=== PATIENT | male | born 1980 | race Caucasian/White ===

== ENCOUNTER 2018-02-14 09:25 | Observation (INO) | payer MEDICAID, SELFPAY ==
[2018-02-14 09:25] VITALS: BP 89/47; PULSE 52; RESP 24; TEMP 36.2; O2SAT 99; BMI 23.0
--- NOTE | 2018-02-14 09:42 | CT_ITS ---
STUDY: CT ABDOMEN AND PELVIS WITHOUT CONTRAST REASON FOR EXAM: Male, 37 years old. Nausea and vomiting since 0 5:30 AM today. Abdominal spasms. RADIATION DOSAGE (If Supplied By Facility): CTDIvol = ( 6.34 ) mGy, DLP = ( 316.72 ) mGycm TECHNIQUE: Transaxial images were obtained from the dome of the diaphragm to the symphysis pubis without oral contrast, and without intravenous contrast. Sagittal and coronal images were reconstructed. Individualized dose optimization techniques were used for this CT. COMPARISON: None available. FINDINGS: CT abdomen and pelvis mildly limited without IV contrast. The visualized lung bases appear clear. The visualized lower heart appear within normal limits. Normal liver. Normal gallbladder and extrahepatic biliary system. Normal spleen. Normal pancreas. Normal bilateral adrenal glands. Normal right kidney. Normal left kidney. No hydronephrosis or hydroureter identified. No high attenuation urolithiasis identified. Visualized stomach and visualized distal esophagus show no focal large gross bulky lesion. Normal small intestine. However, at the hepatic flexure and through the proximal to distal transverse colon is hazy effaced pericolonic fat planes and transverse colon wall circumferential low attenuation suggesting edematous changes without dilatation concerning for inflammatory bowel changes such as ulcerative colitis or Crohn's disease. The appendix is visualized and appears normal caliber without thickening noted. Normal abdominal aorta. Normal inferior vena cava. Normal retroperitoneum. Normal urinary bladder. Prostate is approximate in 3.2 x 5.1 cm, upper limits of normal without peripheral effacement point seen. Normal abdominal wall. Mild intraosseous proptosis lower thoracic spine noted. Fairly severe disc space narrowing and endplate sclerosis noted L5-S1. CT/Abdomen/Pelvis without Cont IMPRESSION: Inflammatory changes of the entire transverse colon, differential considerations include ulcerative colitis and Crohn's disease. No transverse colon dilatation or obstruction identified. Clinical correlation recommended. Stomach shows no large gross focal bulky lesion but evaluation is limited without IV contrast. Borderline prostamegaly. Clinical correlation recommended. Fairly severe degenerative L5-S1. Limitations above. Electronically Signed: Laz Vitor, at 10:58 EDT Tel , Service support ,
--- NOTE | 2018-02-14 09:42 | ED.VISSUMM ---
- ER Visit Summary Date of Service: 02/14/18 Chief Complaint: [] Abdominal pain vomiting and diarrhea 5 AM this morning history of same for 5 years intermittently History of Present Illness: The patient is a 37 M [] at 5 AM this morning and having vomiting and diarrhea and crampy lower abdominal pain he said the same syndrome for the last 5 years where he will undergo paroxysms of the above for no specific reason. He has been evaluated with colonoscopies CAT scans and ultrasounds etc. the are unremarkable it is unclear why he has these symptoms. He did not eat or do anything that could have made him ill reports everything was fine last night and this is his typical exacerbation, he does have depression he takes Prozac and that has been stable Physical Examination: [] Is complaining of crampy abdominal pain he has vomited some stomach content his vitals are within normal range his blood pressure is 130/80 the reports occasionally has a low blood pressure with blood pressures been fine and that is an accurate blood pressure his HEENT exam is unremarkable neck is supple lungs are clear heart tones are normal abdomen soft there is a generalized crampy sensation he complains of but there is no rebound guarding organomegaly the abdomen soft, complaints of the cramps no focal areas of tenderness, his extremities are unremarkable he is awake alert moving all 4 no distress except for the cramps Test Results: [] Emergency Department Course and Treatment: [] His white count is 14,000, his abdominal CT per radiology shows inflammation of the entire transverse colon he was started on IV antibiotics IV fluids IV pain meds he is feeling slightly better but not well enough for discharge Dates again he has had this problem for 5 years or more he seen multiple physicians in the prior workups have been unremarkable given all of the above we have asked the hospitalist to see him for further management and admission Treatment Plan: [] Disposition: [] Admit stable pending hospitalist evaluation Impression: [] abdominal pain/colitis involving the transverse colon leukocytosis This note was generated with [employer] dictation software. It may contain incorrect words, spelling, and punctuation that were not noted in review of the chart prior to signing ED Disposition - Plan for ED Patient: Chief Complaint: Nausea/Vomiting Referrals: Kervin Zuniga DO [Primary Care Provider] -
[2018-02-14 09:53] LABS: Absolute Lymphocyte Count 1.27 X10^3/ul (0.83-4.51); Absolute Neutrophil Count 11.5 X10^3/uL (2.0-7.7); Basophil# 0.03 X10^3/uL; Basophil% 0.2 % (0-1); Eosinophil# 0.02 X10^3/uL; Eosinophils% 0.1 % (0-5); Hematocrit 43.9 % (40-54); Hemoglobin 15.9 g/dl (13.0-16.5); Lymphocyte # 1.27 X10^3/ul (4.0); Lymphocyte % 9.4 % (19-41); Mean Corp Hgb Conc 36.2 g/gl (32-36); Mean Corpuscular Hgb 30.1 pg (27.0-32.0); Mean Corpuscular Volume 83.1 fL (80-94); Mean Platelet Vol. 10.1 fl (6.2-12.0); Monocyte# 0.67 X10^3/uL; Neutrophil # 11.47 X10^3/uL (2.7-7.7); Neutrophil % 85.2 % (47-70); POSITIVE COUNT NO; POSITIVE DIFFERENTIAL NO; POSITIVE MORPHOLOGY NO; Platelet Count 239 K/mm3 (150-450); RBC Distribution Width CV 12.3 % (11.6-14.6); RBC Distribution Width SD 37.3 fl (35.1-43.9); Red Blood Count 5.28 M/mm3 (4.6-6.2); White Blood Count 13.5 K/mm3 (4.4-11.0)
[2018-02-14] MEDS: Ondansetron 4 MG/2 ML Vial IV (09:53)
[2018-02-14] MEDS: 0.9% Normal Saline 1,000 ML 1000 ML IV (09:53)
[2018-02-14] MEDS: Morphine 4 MG/ML Syringe IV ×2 (09:53→11:31)
[2018-02-14 09:56] VITALS: BP 135/100; PULSE 61; RESP 25; O2SAT 98
[2018-02-14 10:09] LABS: AST(SGOT) 17 U/L (15-37); Alanine Aminotransfer ALT/SGPT 25 U/L (16-61); Albumin, Serum 4.3 g/dL (3.2-5.0); Alkaline Phosphatase 66 U/L (45-117); Anion Gap 10 (5-15); BUN 22 mg/dL (7-18); BUN/Creat Ratio 22.3 RATIO (10-20); Bilirubin, Direct 0.16 mg/dL (0.00-0.30); Calcium,Total 9.3 mg/dL (8.5-10.1); Chloride 104 mmol/L (98-107); Creatinine, Serum 0.98 mg/dL (0.70-1.30); EST Glomerular Filtration Rate 91 mL/min (>60); Est Glom Filt Rate - Afr Amer 110 mL/min (>60); Estimated Creatinine Clearance 109.34 ml/min; Glucose 181 mg/dL (74-106); Lipase 476 U/L (73-393); Protein, Total 8.3 g/dL (6.4-8.2); Sodium Level 138 mmol/L (136-145)
[2018-02-14 11:33] VITALS: BP 110/92; PULSE 54; RESP 15; O2SAT 97
[2018-02-14 11:45] LABS: Squamous Epithelial Cells - UA 0 SEEN /hpf (0-5)
[2018-02-14 11:48] LABS: Color, Urine Yellow (Yellow); Glucose, Dipstick 50 mg/dl (Normal); Leukocyte Esterase-Dipstick Negative /ul (Negative); Nitrite-Dipstick Negative (Negative); Occult Blood-Urine Negative /ul (Negative); Protein-Dipstick 15 mg/dl (Negative); Urine Bilirubin Dipstick Negative (Negative); Urine Clarity Clear (Clear); Urine Urobilinogen Normal (Normal)
[2018-02-14 11:49] LABS: Ketone-Dipstick 150 mg/dl (Negative)
[2018-02-14 11:54] LABS: Amorphous Sediment 2+; Bacteria RARE /hpf (None Seen); Mucous, Urine RARE /hpf (<or=2+); Red Blood Cells-Urine 0-5 SEEN /hpf (0-5); White Blood Cells 0-5 SEEN /hpf (0-5)
[2018-02-14 12:57] VITALS: BP 104/67; PULSE 82; RESP 16; O2SAT 100
[2018-02-14 13:56] VITALS: BMI 23.1
[2018-02-14 13:57] VITALS: BP 104/64; PULSE 56; RESP 18; TEMP 36.7; O2SAT 96
--- NOTE | 2018-02-14 15:11 | PCM.HP.STD ---
Problem List (1) Irregular bowel habits Status: Chronic (2) Transverse colitis Status: Acute (3) Acute on chronic abdominal pain Status: Chronic History of Present Illness Date of Admission: 02/14/18 Chief Complaint: Abdominal pain for 2 days The patient is a 37 year old M with history of intermittent abdominal pain for 7 years, once every month came to ER with sudden onset of abdominal pain last night. Patient had mid abdominal pain spread over like a band along with nausea and vomiting. Patient further said that he starts with large liquid bowel movement and then abdominal pain associated with nausea and vomiting status for about 2 days and then goes away. Patient never had GI workup including EGD or colonoscopy. Patient denies episodes of GI bleed including hematemesis/hematochezia or melena. In ED, CT abdomen shows transverse colitis with wall thickening and edema of the entire colon. No transverse colon dilatation or obstruction noted. In basic labs done in ER, noted to have mild leukocytosis. Glucose 181. UA is positive of protein, glucose and ketones [] Past Medical History Past Medical History (Chronic Problems): Chronic Problems Irregular bowel habits (Chronic) Acute on chronic abdominal pain (Chronic) Allergies No Known Allergies Allergy (Verified 02/14/18 09:27) Home Medications: Ambulatory Orders Medication Instructions Recorded Fluoxetine [Prozac] 40 mg PO QHS 02/14/18 Smoking Status: Former smoker - *Family History Paternal History Items: Cancer - Prostate cancer Review of Systems Constitutional: Denies: Chills, Fever, Weight Change HEENT: Denies: Head Aches, Sinus Congestion, Sinus Drainage Cardiovascular: Denies: Chest Pain, Palpitations Respiratory: Denies: Cough, Shortness of breath at rest, Sputum production Gastrointestinal: Reports: Abdominal Pain, Diarrhea, Nausea, Vomiting. Denies: Hematemesis, Hematochezia Genitourinary: Denies: Dysuria Musculoskeletal: Denies: Joint Pain, Joint Tenderness Skin: Denies: Rash, Wounds Neurological: Denies: Numbness, Tingling, Focal weakness Psychiatric: Denies: Anxiety, Depression, Homicidal Ideations, Suicidal Ideations Hematologic/ Lymphatic: Denies: Easy Bruising, Easy Bleeding VTE Information - Inpt Only VTE Present on Admission: No VTE Mechan Device Prophylaxis: SCD's VTE Pharm Prophylaxis ordered?: Yes Patient Problems: Active and Suspected Problems Transverse colitis (Acute) - Physical Exam General: Alert, Oriented x3, Cooperative HEENT: Atraumatic, PERRLA, EOMI, Normocephalic Neck: Supple, No JVD, Negative Carotid Bruits Lungs: Clear to auscultation, Normal air movement Cardiovascular: Regular rate, Regular Rhythm, Normal S1, Normal S2, No murmurs Abdomen: Bowel Sounds Present, Soft, Non Tender, Non-Distended Extremities: No edema, Capillary Refill Less than 3 Seconds Skin: No rashes, No breakdown Musculoskeletal: No Tenderness to Palpation of Joints or Extremities Neurological: Cranial nerves II-XII grossly intact Psych/Mental Status: Normal Affect, Appropriate Vital Signs Temp Pulse Resp BP Pulse Ox 98.1 F 56 L 18 104/64 96 02/14/18 13:57 02/14/18 13:57 02/14/18 13:57 02/14/18 13:57 02/14/18 13:57 Oxygen Delivery Method Room Air Weight: 165 lb 11.2 oz Body Mass Index (BMI) 23.1 Assessment/Plan Active and Suspected Problems Transverse colitis (Acute) The patient is a 37 year old M with history of intermittent abdominal pain for 7 years, once every month came to ER with sudden onset of abdominal pain last night. Patient had mid abdominal pain spread over like a band along with nausea and vomiting. Patient further said that he starts with large liquid bowel movement and then abdominal pain associated with nausea and vomiting status for about 2 days and then goes away. Patient never had GI workup including EGD or colonoscopy. Patient denies episodes of GI bleed including hematemesis/hematochezia or melena. In ED, CT abdomen shows transverse colitis with wall thickening and edema of the entire colon. No transverse colon dilatation or obstruction noted. In basic labs done in ER, noted to have mild leukocytosis. Glucose 181. UA is positive of protein, glucose and ketones, 1. Acute on recurrent abdominal pain with transverse colitis; high suspicion of inflammatory bowel disease: Patient is being admitted on the regular floor. Started on clear liquid and advance as per tolerated. On IV Cipro and Flagyl. Currently patient does not have tenderness or distention and wants to eat. Lab test and imaging was discussed with the patient along with the suspicion of IBD. Patient was recommended outpatient colonoscopy in 2-3 weeks. 2. Hyperglycemia: Patient does not have history of diabetes mellitus. A1c tomorrow a.m. Small amount of ketones and protein in the urine probably from fasting but diabetes mellitus needs to be ruled out. 3. DVT prophylaxis: Low risk does not need DVT prophylaxis. Laboratory Results 02/14/18 04:40: WBC 13.5 H, RBC 5.28, Hgb 15.9, Hct 43.9, MCV 83.1, MCH 30.1, MCHC 36.2 H, RDW 12.3, RDW Differential 37.3, Plt Count 239, MPV 10.1, Immature Gran % (Auto) 0.100, Neut % (Auto) 85.2 H, Lymph % (Auto) 9.4 L, Schley % (Auto) 5.0, Eos % (Auto) 0.1, Baso % (Auto) 0.2, Absolute Neuts (auto) 11.5 H, Absolute Lymphs (auto) 1.27, Total Counted Not Reportable 02/14/18 04:40: Sodium 138, Potassium 4.0, Chloride 104, Carbon Dioxide 24.0, Anion Gap 10, BUN 22 H, Creatinine 0.98, Estim Creat Clear Calc 109.34, Est GFR (MDRD) Af Amer 110, Est GFR (MDRD) Non-Af 91, BUN/Creatinine Ratio 22.3 H, Glucose 181 H, Calcium 9.3, Total Bilirubin 0.60, Direct Bilirubin 0.16, AST 17, ALT 25, Alkaline Phosphatase 66, Total Protein 8.3 H, Albumin 4.3, Globulin 4.0, Lipase 476 H 02/14/18 11:40: Urine Color Yellow, Urine Clarity Clear, Urine pH 8.0, Ur Specific [place] 1.010, Urine Protein 15 H, Urine Glucose (UA) 50 H, Urine Ketones 150 H, Urine Occult Blood Negative, Urine Nitrite Negative, Urine Bilirubin Negative, Urine Urobilinogen Normal, Ur Leukocyte Esterase Negative, Urine RBC 0-5 SEEN, Urine WBC 0-5 SEEN, Ur Squamous Epith Cells 0 SEEN, Amorphous Sediment 2+, Urine Bacteria RARE, Urine Mucus RARE Clinical Impression(s) from Imaging Studies Abdomen/Pelvis CT 02/14/18 09:42 IMPRESSION: Inflammatory changes of the entire transverse colon, differential considerations include ulcerative colitis and Crohn's disease. No transverse colon dilatation or obstruction identified. Clinical correlation recommended. Stomach shows no large gross focal bulky lesion but evaluation is limited without IV contrast. Borderline prostamegaly. Clinical correlation recommended. Fairly severe degenerative L5-S1. Code Visit OBSV E&M: 24954 Initial observation care L3
[2018-02-14] MEDS: 0.9% Normal Saline 1,000 ML 150 ML IV ×2 (15:16→22:06)
[2018-02-14] MEDS: Ciprofloxacin 400 MG/200 ML BAG 200 MG IV (15:48)
[2018-02-14 22:04] VITALS: BP 110/72; PULSE 57; RESP 18; TEMP 36.7; O2SAT 94
[2018-02-14] MEDS: Famotidine 20 MG Tablet PO (22:06)
[2018-02-14] MEDS: FLUoxetine 20 MG Capsule 40 MG PO (22:06)
[2018-02-14] MEDS: 0.9% NaCl Peripheral Flush Adult/Peds IV (22:08)
[2018-02-15] MEDS: Zolpidem Tartrate 5 MG Tablet PO (00:17)
[2018-02-15] MEDS: Ciprofloxacin 400 MG/200 ML BAG 200 MG IV ×2 (00:18→09:34)
[2018-02-15] MEDS: 0.9% Normal Saline 1,000 ML 150 ML IV (03:01)
[2018-02-15 05:36] VITALS: BP 113/69; PULSE 59; RESP 16; TEMP 36.7; O2SAT 96
[2018-02-15 06:33] LABS: Absolute Lymphocyte Count 1.68 X10^3/ul (0.83-4.51); Absolute Neutrophil Count 4.9 X10^3/uL (2.0-7.7); Basophil# 0.03 X10^3/uL; Basophil% 0.4 % (0-1); Eosinophil# 0.09 X10^3/uL; Eosinophils% 1.2 % (0-5); Hematocrit 41.2 % (40-54); Hemoglobin 14.4 g/dl (13.0-16.5); Lymphocyte # 1.68 X10^3/ul (4.0); Lymphocyte % 22.7 % (19-41); Mean Corpuscular Hgb 29.9 pg (27.0-32.0); Mean Corpuscular Volume 85.7 fL (80-94); Mean Platelet Vol. 9.8 fl (6.2-12.0); Monocyte# 0.71 X10^3/uL; Monocyte% 9.6 % (0-10); Neutrophil # 4.87 X10^3/uL (2.7-7.7); Platelet Count 198 K/mm3 (150-450); RBC Distribution Width CV 12.6 % (11.6-14.6); Red Blood Count 4.81 M/mm3 (4.6-6.2); White Blood Count 7.4 K/mm3 (4.4-11.0)
[2018-02-15 06:35] LABS: POSITIVE COUNT NO; POSITIVE DIFFERENTIAL NO; POSITIVE MORPHOLOGY NO
[2018-02-15 06:48] LABS: Anion Gap 7 (5-15); BUN 12 mg/dL (7-18); BUN/Creat Ratio 14.1 RATIO (10-20); Calcium,Total 7.9 mg/dL (8.5-10.1); Chloride 109 mmol/L (98-107); Creatinine, Serum 0.85 mg/dL (0.70-1.30); EST Glomerular Filtration Rate 107 mL/min (>60); Est Glom Filt Rate - Afr Amer 130 mL/min (>60); Estimated Creatinine Clearance 126.49 ml/min; Glucose 99 mg/dL (74-106); Lipase 189 U/L (73-393); Potassium 3.6 mmol/L (3.5-5.1); Sodium Level 141 mmol/L (136-145)
[2018-02-15 08:03] LABS: Hemoglobin A1c 5.6 % (4.2-6.3)
--- NOTE | 2018-02-15 10:01 | PCM.DC ---
- Discharge Diagnoses Current Active Problems: Current Active and Chronic Problems Irregular bowel habits (Chronic) Transverse colitis (Acute) Acute on chronic abdominal pain (Chronic) You will use the following diet at home:: Regular - soft diet; low fibre residue for 5 days Discharge Activity: May not drive while taking narcotic pain medications. Allergies/Adverse Reactions: Allergies No Known Allergies Allergy (Verified 02/14/18 09:27) Medications to take at Discharge Fluoxetine [Prozac] 40 mg PO QHS 02/14/18 Ciprofloxacin [Cipro] 500 mg PO BID #14 tab 02/15/18 Lactobacillus Acidophilus [Acidophilus] 1 tablet PO TID tablet 02/15/18 Metronidazole [Flagyl] 500 mg PO TID #15 tab 02/15/18 Ondansetron HCl [Zofran] 4 mg PO Q6H PRN PRN #30 tab 02/15/18 The following prescriptions were given: Ondansetron HCl [Zofran] 4 mg PO Q6H PRN PRN #30 tab PRN Reason: Nausea/vomiting Ciprofloxacin [Cipro] 500 mg PO BID #14 tab Metronidazole [Flagyl] 500 mg PO TID #15 tab Primary Care Physician: Kervin Zuniga DO [Primary Care Provider] - Please follow up with your Primary Care Physician in: in 2 weeks Please Follow Up With: Randall Carrillo MD When: in 2-3 weeks for colonoscopy as outpatient
[2018-02-15 10:02] VITALS: BP 129/71; PULSE 64; RESP 18; TEMP 37.1; O2SAT 98
[2018-02-15] MEDS: Famotidine 20 MG Tablet PO (11:19)
[2018-02-15] MEDS: Ciprofloxacin 500 MG Tablet PO (11:19)
--- NOTE | 2018-02-15 18:09 | PCM.DC.SUM ---
Discharge Date and Diagnosis Date of Admission: 02/14/18 Date of Discharge: 02/15/18 - Primary Discharge Diagnosis 1. Acute on recurrent abdominal pain with transverse colitis; high suspicion of inflammatory bowel disease; but possible infectious colitis 2. Hyperglycemia; diabetes mellitus/prediabetes ruled out - Secondary Discharge Diagnosis Chronic Problems Irregular bowel habits (Chronic) Acute on chronic abdominal pain (Chronic) Hospital Course and Treatment Summary of Care Provided: The patient is a 37 year old M [] The patient is a 37 year old M with history of intermittent abdominal pain for 7 years, once every month came to ER with sudden onset of abdominal pain last night. Patient had mid abdominal pain spread over like a band along with nausea and vomiting. Patient further said that he starts with large liquid bowel movement and then abdominal pain associated with nausea and vomiting status for about 2 days and then goes away. Patient never had GI workup including EGD or colonoscopy. Patient denies episodes of GI bleed including hematemesis/hematochezia or melena. In ED, CT abdomen shows transverse colitis with wall thickening and edema of the entire colon. No transverse colon dilatation or obstruction noted. In basic labs done in ER, noted to have mild leukocytosis. Glucose 181. UA is positive of protein, glucose and ketones. Patient seen and examined today General: Alert, Oriented x3, Cooperative HEENT: Atraumatic, PERRLA, EOMI, Normocephalic Neck: Supple, No JVD, Negative Carotid Bruits Lungs: Clear to auscultation, Normal air movement Cardiovascular: Regular rate, Regular Rhythm, Normal S1, Normal S2, No murmurs Abdomen: Bowel Sounds Present, Soft, Non Tender, Non-Distended Extremities: No edema, Capillary Refill Less than 3 Seconds Skin: No rashes, No breakdown Musculoskeletal: No Tenderness to Palpation of Joints or Extremities Neurological: Cranial nerves II-XII grossly intact Psych/Mental Status: Normal Affect, Appropriate 1. Acute on recurrent abdominal pain with transverse colitis; high suspicion of inflammatory bowel disease: Patient is being admitted on the regular floor. Started on clear liquid and advance as per tolerated. On IV Cipro and Flagyl. Currently patient does not have tenderness or distention. Patient tolerated soft diet. Patient was seen by surgeon Dr. Cook. He advised to follow-up in 2-3 weeks for outpatient colonoscopy. Lab test and imaging was discussed with the patient along with the suspicion of IBD. Patient was discharged on a prescription of Cipro and Flagyl. Patient was also recommended [id number] lactobacillus. 2. Hyperglycemia; diabetes mellitus ruled out: Patient does not have history of diabetes mellitus. A1c 5.6. Small amount of ketones and protein in the urine probably from fasting. Diabetes mellitus ruled out. Patient was educated about healthy diet as he is high risk for prediabetes and metabolic syndrome because of MILD obesity with BMI 23. Discharge medication reconciliation done. Prescription sent to the patient's pharmacy. Laboratory Results 02/15/18 06:10: WBC 7.4, RBC 4.81, Hgb 14.4, Hct 41.2, MCV 85.7, MCH 29.9, MCHC 35.0, RDW 12.6, RDW Differential 39.0, Plt Count 198, MPV 9.8, Immature Gran % (Auto) 0.100, Neut % (Auto) 66.0, Lymph % (Auto) 22.7, Dick[place] % (Auto) 9.6, Eos % (Auto) 1.2, Baso % (Auto) 0.4, Absolute Neuts (auto) 4.9, Absolute Lymphs (auto) 1.68, Total Counted Not Reportable 02/15/18 06:10: Sodium 141, Potassium 3.6, Chloride 109 H, Carbon Dioxide 25.0, Anion Gap 7, BUN 12, Creatinine 0.85, Estim Creat Clear Calc 126.49, Est GFR (MDRD) Af Amer 130, Est GFR (MDRD) Non-Af 107, BUN/Creatinine Ratio 14.1, Glucose 99, Calcium 7.9 L, Lipase 189 02/15/18 06:10: Hemoglobin A1c 5.6 Clinical Impression(s) from Imaging Studies Abdomen/Pelvis CT 02/14/18 09:42 IMPRESSION: Inflammatory changes of the entire transverse colon, differential considerations include ulcerative colitis and Crohn's disease. No transverse colon dilatation or obstruction identified. Clinical correlation recommended. Stomach shows no large gross focal bulky lesion but evaluation is limited without IV contrast. Borderline prostamegaly. Clinical correlation recommended. Fairly severe degenerative L5-S1. Discharge Activity: May not drive while taking narcotic pain medications. Home Medications: Medications to take at Discharge Fluoxetine [Prozac] 40 mg PO QHS 02/14/18 Ciprofloxacin [Cipro] 500 mg PO BID #14 tab 02/15/18 Lactobacillus Acidophilus [Acidophilus] 1 tablet PO TID tablet 02/15/18 Metronidazole [Flagyl] 500 mg PO TID #15 tab 02/15/18 Ondansetron HCl [Zofran] 4 mg PO Q6H PRN PRN #30 tab 02/15/18 Following Prescrptions Were Given to Patient: Ondansetron HCl [Zofran] 4 mg PO Q6H PRN PRN #30 tab PRN Reason: Nausea/vomiting Ciprofloxacin [Cipro] 500 mg PO BID #14 tab Metronidazole [Flagyl] 500 mg PO TID #15 tab Primary Care Physician: Kervin Zuniga DO [Primary Care Provider] - Please follow up with your Primary Care Physician in: in 2 weeks Please Follow Up With: Randall Carrillo MD When: in 2-3 weeks for colonoscopy as outpatient Medical Necessity - Tobacco Use Smoking Status: Former smoker Meaningful Use Info Meaningful Use Diagnoses (Choose all that apply): None applicable Code Visit OBSV E&M: 39066 Observation care discharge
--- NOTE | 2018-02-15 18:14 | DS.PCM_ITS ---
Discharge Date and Diagnosis Date of Admission: 02/14/18 Date of Discharge: 02/15/18 - Primary Discharge Diagnosis 1. Acute on recurrent abdominal pain with transverse colitis; high suspicion of inflammatory bowel disease; but possible infectious colitis 2. Hyperglycemia; diabetes mellitus/prediabetes ruled out - Secondary Discharge Diagnosis Chronic Problems Irregular bowel habits (Chronic) Acute on chronic abdominal pain (Chronic) Hospital Course and Treatment Summary of Care Provided: The patient is a 37 year old M [] The patient is a 37 year old M with history of intermittent abdominal pain for 7 years, once every month came to ER with sudden onset of abdominal pain last night. Patient had mid abdominal pain spread over like a band along with nausea and vomiting. Patient further said that he starts with large liquid bowel movement and then abdominal pain associated with nausea and vomiting status for about 2 days and then goes away. Patient never had GI workup including EGD or colonoscopy. Patient denies episodes of GI bleed including hematemesis/hematochezia or melena. In ED, CT abdomen shows transverse colitis with wall thickening and edema of the entire colon. No transverse colon dilatation or obstruction noted. In basic labs done in ER, noted to have mild leukocytosis. Glucose 181. UA is positive of protein, glucose and ketones. Patient seen and examined today General: Alert, Oriented x3, Cooperative HEENT: Atraumatic, PERRLA, EOMI, Normocephalic Neck: Supple, No JVD, Negative Carotid Bruits Lungs: Clear to auscultation, Normal air movement Cardiovascular: Regular rate, Regular Rhythm, Normal S1, Normal S2, No murmurs Abdomen: Bowel Sounds Present, Soft, Non Tender, Non-Distended Extremities: No edema, Capillary Refill Less than 3 Seconds Skin: No rashes, No breakdown Musculoskeletal: No Tenderness to Palpation of Joints or Extremities Neurological: Cranial nerves II-XII grossly intact Psych/Mental Status: Normal Affect, Appropriate 1. Acute on recurrent abdominal pain with transverse colitis; high suspicion of inflammatory bowel disease: Patient is being admitted on the regular floor. Started on clear liquid and advance as per tolerated. On IV Cipro and Flagyl. Currently patient does not have tenderness or distention. Patient tolerated soft diet. Patient was seen by surgeon Dr. Cook. He advised to follow-up in 2-3 weeks for outpatient colonoscopy. Lab test and imaging was discussed with the patient along with the suspicion of IBD. Patient was discharged on a prescription of Cipro and Flagyl. Patient was also recommended [id number] lactobacillus. 2. Hyperglycemia; diabetes mellitus ruled out: Patient does not have history of diabetes mellitus. A1c 5.6. Small amount of ketones and protein in the urine probably from fasting. Diabetes mellitus ruled out. Patient was educated about healthy diet as he is high risk for prediabetes and metabolic syndrome because of MILD obesity with BMI 23. Discharge medication reconciliation done. Prescription sent to the patient's pharmacy. Laboratory Results 02/15/18 06:10: WBC 7.4, RBC 4.81, Hgb 14.4, Hct 41.2, MCV 85.7, MCH 29.9, MCHC 35.0, RDW 12.6, RDW Differential 39.0, Plt Count 198, MPV 9.8, Immature Gran % ( Auto) 0.100, Neut % (Auto) 66.0, Lymph % (Auto) 22.7, [place] % (Auto) 9.6, Eos % ( Auto) 1.2, Baso % (Auto) 0.4, Absolute Neuts (auto) 4.9, Absolute Lymphs (auto) 1.68, Total Counted Not Reportable 02/15/18 06:10: Sodium 141, Potassium 3.6, Chloride 109 H, Carbon Dioxide 25.0, Anion Gap 7, BUN 12, Creatinine 0.85, Estim Creat Clear Calc 126.49, Est GFR ( MDRD) Af Amer 130, Est GFR (MDRD) Non-Af 107, BUN/Creatinine Ratio 14.1, Glucose 99, Calcium 7.9 L, Lipase 189 02/15/18 06:10: Hemoglobin A1c 5.6 Clinical Impression(s) from Imaging Studies Abdomen/Pelvis CT 02/14/18 09:42 IMPRESSION: Inflammatory changes of the entire transverse colon, differential considerations include ulcerative colitis and Crohn's disease. No transverse colon dilatation or obstruction identified. Clinical correlation recommended. Stomach shows no large gross focal bulky lesion but evaluation is limited without IV contrast. Borderline prostamegaly. Clinical correlation recommended. Fairly severe degenerative L5-S1. Discharge Activity: May not drive while taking narcotic pain medications. Home Medications: Medications to take at Discharge Fluoxetine [Prozac] 40 mg PO QHS 02/14/18 Ciprofloxacin [Cipro] 500 mg PO BID #14 tab 02/15/18 Lactobacillus Acidophilus [Acidophilus] 1 tablet PO TID tablet 02/15/18 Metronidazole [Flagyl] 500 mg PO TID #15 tab 02/15/18 Ondansetron HCl [Zofran] 4 mg PO Q6H PRN PRN #30 tab 02/15/18 Following Prescrptions Were Given to Patient: Ondansetron HCl [Zofran] 4 mg PO Q6H PRN PRN #30 tab PRN Reason: Nausea/vomiting Ciprofloxacin [Cipro] 500 mg PO BID #14 tab Metronidazole [Flagyl] 500 mg PO TID #15 tab Primary Care Physician: Kervin Zuniga DO [Primary Care Provider] - Please follow up with your Primary Care Physician in: in 2 weeks Please Follow Up With: Randall Carrillo MD When: in 2-3 weeks for colonoscopy as outpatient Medical Necessity - Tobacco Use Smoking Status: Former smoker Meaningful Use Info Meaningful Use Diagnoses (Choose all that apply): None applicable Code Visit OBSV E&M: 58808 Observation care discharge
--- NOTE | 2018-02-15 18:35 | PCM.CONS.GEN ---
Reason for Consult Date of Consultation: 02/15/18 History of Present Illness: The patient is a 37 year old M who notes an approximately 8 year history of intermittent abdominal pain with loose stools. The patient notes that he has easily episodes of abdominal pain and bowel habit changes anywhere from monthly to every 6 months for the past 8 years. The patient presented emerged from with relatively severe upper abdominal pain. He denied hematochezia. He did note a degree of some loose stools. He denied nausea or vomiting. He noted no fever or chills. The patient does note a long-standing history of reflux and occasional epigastric discomfort. He presented to [facility] emergency department with these complaints. The patient was noted to be tender in the upper abdomen area did a CT scan of the abdomen and pelvis was obtained which demonstrated significant inflammation of the entire transverse colon. patient had elevated white count of 13.5 thousand, which is normalized today. He denies a known history or family history of inflammatory bowel disease. Past Medical History Past Medical History (Chronic Problems): Chronic Problems Irregular bowel habits (Chronic) Acute on chronic abdominal pain (Chronic) Allergies No Known Allergies Allergy (Verified 02/14/18 09:27) Home Medications: Ambulatory Orders Medication Instructions Recorded Fluoxetine [Prozac] 40 mg PO QHS 02/14/18 Ciprofloxacin [Cipro] 500 mg PO BID #14 tab 02/15/18 Lactobacillus Acidophilus 1 tablet PO TID tablet 02/15/18 [Acidophilus] Metronidazole [Flagyl] 500 mg PO TID #15 tab 02/15/18 Ondansetron HCl [Zofran] 4 mg PO Q6H PRN PRN #30 tab 02/15/18 Surgical History: no surgical history Smoking Status: Former smoker - *Family History Paternal History Items: Cancer - Prostate cancer Review of Systems Constitutional: Denies: Chills, Fever, Weight Change HEENT: Denies: Head Aches, Sinus Congestion, Sinus Drainage Cardiovascular: Denies: Chest Pain, Palpitations Respiratory: Denies: Cough, Shortness of breath at rest, Sputum production Gastrointestinal: Reports: Abdominal Pain. Denies: Nausea, Vomiting Genitourinary: Denies: Dysuria Musculoskeletal: Denies: Joint Pain, Joint Tenderness Skin: Denies: Rash, Wounds Neurological: Denies: Numbness, Tingling, Focal weakness Psychiatric: Denies: Anxiety, Depression, Homicidal Ideations, Suicidal Ideations Hematologic/ Lymphatic: Denies: Easy Bruising, Easy Bleeding - Physical Exam General: Alert, Oriented x3, Cooperative HEENT: Atraumatic, PERRLA, EOMI, Normocephalic Neck: Supple, No JVD, Negative Carotid Bruits Lungs: Clear to auscultation, Normal air movement Cardiovascular: Regular rate, No murmurs Abdomen: Bowel Sounds Present, Soft, Non Tender Extremities: No edema, Capillary Refill Less than 3 Seconds Skin: No rashes, No breakdown Musculoskeletal: No Tenderness to Palpation of Joints or Extremities Neurological: Cranial nerves II-XII grossly intact Psych/Mental Status: Normal Affect, Appropriate Vital Signs Temp Pulse Resp BP Pulse Ox 98.8 F 64 18 129/71 H 98 02/15/18 10:02 02/15/18 10:02 02/15/18 10:02 02/15/18 10:02 02/15/18 10:02 Oxygen Delivery Method Room Air Weight: 75.16 kg Body Mass Index (BMI) 23.1 Intake and Output for Last 24 Hours 02/13/18 02/14/18 02/15/18 23:59 23:59 23:59 Intake Total 3440 / 3440 Output Total 700 / 700 Balance 2740 / 2740 Laboratory Tests Past 24 Hrs 02/15/18 02/15/18 02/15/18 06:10 06:10 06:10 WBC 7.4 RBC 4.81 Hgb 14.4 Hct 41.2 MCV 85.7 MCH 29.9 MCHC 35.0 RDW 12.6 RDW Differential 39.0 Plt Count 198 MPV 9.8 Immature Gran % (Auto) 0.100 Neut % (Auto) 66.0 Lymph % (Auto) 22.7 [place] % (Auto) 9.6 Eos % (Auto) 1.2 Baso % (Auto) 0.4 Absolute Neuts (auto) 4.9 Absolute Lymphs (auto) 1.68 Total Counted Not Reportable Sodium 141 Potassium 3.6 Chloride 109 H Carbon Dioxide 25.0 Anion Gap 7 BUN 12 Creatinine 0.85 Estim Creat Clear Calc 126.49 Est GFR (MDRD) Af Amer 130 Est GFR (MDRD) Non-Af 107 BUN/Creatinine Ratio 14.1 Glucose 99 Hemoglobin A1c 5.6 Calcium 7.9 L Lipase 189 Assessment/Plan recurring episodic abdominal pain, abnormal transverse colon on CT scan imaging-rule out infectious versus inflammatory colitis, occasional reflux and epigastric pain. I discussed with the patient the above findings. If the patient is able to have a bowel movement today, I would obtain stool studies including C. difficile, ova and parasites, enteric pathogens, and fecal WBCs and RBCs. The patient is otherwise doing well clinically. His been transitioned to oral antibiotics. I'm comfortable with being discharged home. If he is discharged home for bowel movement, he can obtain the stool studies an outpatient. Given the patient's symptomatology, I would recommend upper and lower endoscopy. The patient understands the risks, benefits, complications, and possible alternatives and consents to the planned procedure. We will plan for outpatient endoscopy.
== END 2018-02-15 11:35 | disposition home or self-care (01) ==
LOC: ED 10:22 → MS3 02-15 07:20
PROVIDERS: Admitting Provider Internal Medicine; Emergency Provider Emergency Medicine; Family Provider Family Medicine; PCP Family Medicine; Visit Provider Internal Medicine
DX: K52.89 Other specified noninfective gastroenteritis and colitis (principal); R73.9 Hyperglycemia, unspecified; Z87.891 Personal history of nicotine dependence; F32.9 Major depressive disorder, single episode, unspecified; Z79.899 Other long term (current) drug therapy
CPT/HCPCS: 36415; 74176; 80048; 80076; 81001; 83036; 83690; 85025; 96361; 96365; 96366; 96367; 96375; 96376; 99218; 99284; J7030; A4216; G0378; J0744; J2405

== ENCOUNTER → 2019-04-17 | Outpatient (CLI) | payer BC, SELFPAY ==
[2018-02-14 13:56] VITALS: BMI 23.1
[2019-04-17 17:25] LABS: Absolute Lymphocyte Count 2.02 X10^3/ul (0.83-4.51); Absolute Neutrophil Count 2.9 X10^3/uL (2.0-7.7); Basophil# 0.04 X10^3/uL; Basophil% 0.7 % (0-1); Eosinophil# 0.17 X10^3/uL; Hematocrit 41.9 % (40-54); Hemoglobin 14.5 g/dl (13.0-16.5); Lymphocyte # 2.02 X10^3/ul (4.0); Lymphocyte % 35.7 % (19-41); Mean Corp Hgb Conc 34.6 g/gl (32-36); Mean Corpuscular Hgb 29.2 pg (27.0-32.0); Mean Corpuscular Volume 84.5 fL (80-94); Monocyte# 0.52 X10^3/uL; Monocyte% 9.2 % (0-10); Neutrophil % 51.2 % (47-70); Platelet Count 191 K/mm3 (150-450); RBC Distribution Width CV 12.5 % (11.6-14.6); RBC Distribution Width SD 37.7 fl (35.1-43.9); Red Blood Count 4.96 M/mm3 (4.6-6.2); White Blood Count 5.7 K/mm3 (4.4-11.0)
[2019-04-17 17:31] LABS: POSITIVE COUNT NO; POSITIVE DIFFERENTIAL NO; POSITIVE MORPHOLOGY NO
[2019-04-17 17:39] LABS: ALB/GLOB Ratio 1.2 RATIO (0.9-2.4); AST(SGOT) 14 U/L (15-37); Alanine Aminotransfer ALT/SGPT 26 U/L (16-61); Alkaline Phosphatase 53 U/L (45-117); Anion Gap 7 (5-15); BUN 19 mg/dL (7-18); BUN/Creat Ratio 20.5 RATIO (10-20); Calcium,Total 8.7 mg/dL (8.5-10.1); Chloride 106 mmol/L (98-107); Cholesterol 187 mg/dL (200); Creatinine, Serum 0.93 mg/dL (0.70-1.30); EST Glomerular Filtration Rate 97 mL/min (>60); Est Glom Filt Rate - Afr Amer 117 mL/min (>60); Globulin 3.3 g/dL (2.2-4.2); Glucose 80 mg/dL (74-106); High Density Lipoprotein 45 mg/dL; Potassium 3.7 mmol/L (3.5-5.1); Protein, Total 7.3 g/dL (6.4-8.2); Sodium Level 140 mmol/L (136-145); Triglycerides 114 mg/dL; Very Low Density Lipoprotein 23 mg/dL (5-40)
[2019-04-17 17:44] LABS: Hemoglobin A1c 5.6 % (4.2-6.3)
== END | disposition home or self-care (01) ==
LOC: BFHLAB 16:20
PROVIDERS: Family Provider Family Medicine; PCP Family Medicine; Visit Provider Family Medicine
DX: Z00.00 Encounter for general adult medical examination without abnormal findings (principal); R73.9 Hyperglycemia, unspecified
CPT/HCPCS: 36415; 80053; 80061; 83036; 85025

== ENCOUNTER → 2020-06-21 16:22 | Outpatient (CLI) | payer BC, SELFPAY ==
[2020-06-21 17:08] LABS: Absolute Lymphocyte Count 2.08 X10^3/uL (0.83-4.51); Absolute Neutrophil Count 3.4 X10^3/uL (2.0-7.7); Basophil# 0.06 X10^3/uL; Basophil% 0.9 % (0-1); Eosinophil# 0.19 X10^3/uL; Hematocrit 43.9 % (40-54); Hemoglobin 14.8 g/dL (13.0-16.5); Lymphocyte # 2.08 X10^3/ul (4.0); Lymphocyte % 32.7 % (19-41); Mean Corp Hgb Conc 33.7 g/dL (32-36); Mean Corpuscular Hgb 29.8 pg (27.0-32.0); Mean Corpuscular Volume 88.3 fL (80-94); Mean Platelet Vol. 9.7 fl (6.2-12.0); Monocyte# 0.59 X10^3/uL; Monocyte% 9.3 % (0-10); NRBC Flagged by Analyzer 0 % (0-5); Neutrophil # 3.43 X10^3/uL (2.7-7.7); Neutrophil % 53.9 % (47-70); Platelet Count 213 K/mm3 (150-450); RBC Distribution Width CV 12.7 % (11.6-14.6); RBC Distribution Width SD 40.3 fl (35.1-43.9); Red Blood Count 4.97 M/mm3 (4.6-6.2); White Blood Count 6.4 K/mm3 (4.4-11.0)
[2020-06-21 17:42] LABS: ALB/GLOB Ratio 1.3 RATIO (0.9-2.4); AST(SGOT) 17 U/L (15-37); Alanine Aminotransfer ALT/SGPT 31 U/L (16-61); Albumin, Serum 4.2 g/dL (3.2-5.0); Alkaline Phosphatase 63 U/L (45-117); Anion Gap 2 (5-15); BUN 20 mg/dL (7-18); BUN/Creat Ratio 20.7 RATIO (10-20); Calcium,Total 8.9 mg/dL (8.5-10.1); Chloride 108 mmol/L (98-107); Cholesterol 194 mg/dL (200); Creatinine, Serum 0.96 mg/dL (0.70-1.30); EST Glomerular Filtration Rate 92 mL/min (>60); Est Glom Filt Rate - Afr Amer 111 mL/min (>60); Globulin 3.3 g/dL (2.2-4.2); Glucose 80 mg/dL (74-106); High Density Lipoprotein 50 mg/dL; Potassium 3.9 mmol/L (3.5-5.1); Protein, Total 7.5 g/dL (6.4-8.2); Sodium Level 140 mmol/L (136-145); Triglycerides 127 mg/dL; Very Low Density Lipoprotein 25 mg/dL (5-40)
[2020-06-21 17:44] LABS: Hemoglobin A1c 5.5 % (3.8-5.6)
== END ==
PROVIDERS: PCP Family Medicine; Visit Provider Family Medicine
DX: Z00.00 Encounter for general adult medical examination without abnormal findings (principal); R73.9 Hyperglycemia, unspecified
CPT/HCPCS: 36415; 80053; 80061; 83036; 85025

== ENCOUNTER → 2020-12-03 17:07 | Outpatient (CLI) | payer BC, SELFPAY | PROVIDERS: PCP Family Medicine; Referring Provider Otolaryngology; Visit Provider Otolaryngology | DX: Z11.59 Encounter for screening for other viral diseases (principal) | CPT/HCPCS: 87635; C9803; U0003 ==

== ENCOUNTER 2021-04-12 15:31 | Emergency (ER) | payer BC, SELFPAY ==
[2021-04-12 15:32] VITALS: BP 139/76; PULSE 50; RESP 19; TEMP 36.4; O2SAT 98; BMI 22.2
--- NOTE | 2021-04-12 15:55 | CT_ITS ---
STUDY: CT ABDOMEN AND PELVIS WITH CONTRAST REASON FOR EXAM: Male, 40 years old. Abdominal pain RADIATION DOSAGE (If Supplied By Facility): CTDIvol = ( 15.245 ) mGy, DLP = ( 534.06 ) mGycm TECHNIQUE: Transaxial images were obtained from the dome of the diaphragm to the symphysis pubis without oral contrast. IV 100mL Isovue-300 was administered. Sagittal and coronal images were reconstructed. Individualized dose optimization techniques were used for this CT. COMPARISON: 02/14/2018. FINDINGS: The visualized lung bases are unremarkable. The visualized portions of the heart are within normal limits. Normal liver. Normal gallbladder and extrahepatic biliary system. Normal spleen. Normal pancreas. Normal bilateral adrenal glands. Normal right kidney. Normal left kidney. Normal visualized stomach. Normal small intestine. Mild wall thickening of the proximal colon. The appendix is visualized and appears normal. Normal abdominal aorta. Normal inferior vena cava. Normal retroperitoneum. Normal urinary bladder. Normal abdominal wall. Normal osseous structures. CT/Abdomen/Pelvis W IV Cont ONLY IMPRESSION: Wall thickening of the proximal colon may be related to a regional form of colitis, similar to previous study. Electronically Signed: Sven Landrum DO at 17:57 EDT Tel [phone], Service support ,
--- NOTE | 2021-04-12 15:55 | EX.ED.DYSGE1 ---
HPI History of Present Illness Chief Complaint: Abd Pain Informant: patient Narrative Narrative: 40-year male presents for evaluation abdominal pain and vomiting. Symptoms began abruptly at 930 this morning. He states he has had intermittent symptoms for years with this. He has had colonoscopies which have been negative. At one point he was diagnosed with colitis. He has a daily cannabis user but does not believe that has anything to do with today's symptoms. No fevers. Urinating normally. Normal bowel movements yesterday. Patient describes a pressure in the abdomen and unable to find position of comfort PFSH PFS Home Medications fluoxetine 40 mg PO QHS 02/14/18 [History Last Taken 02/13/18] acidophilus-pectin, citrus 1 tab PO TID tablet 02/15/18 [Rx Last Taken Unknown] ciprofloxacin HCl 500 mg PO BID #14 tab 02/15/18 [Rx Last Taken Unknown] metronidazole 500 mg PO TID #15 tab 02/15/18 [Rx Last Taken Unknown] ondansetron HCl 4 mg PO Q6H PRN PRN #30 tab 02/15/18 [Rx Last Taken Unknown] ciprofloxacin HCl 500 mg PO BID #20 tablet 04/12/21 [Rx Last Taken Unknown] hydrocodone-acetaminophen 1 tab PO Q6H PRN PRN 3 Days #12 tablet 04/12/21 [Rx Last Taken Unknown] metronidazole 500 mg PO Q8H #30 tab 04/12/21 [Rx Last Taken Unknown] ondansetron 4 mg PO Q8H PRN PRN #10 tab 04/12/21 [Rx Last Taken Unknown] Allergy/AdvReac Type Severity Reaction Status Date / Time No Known Allergies Allergy Verified 04/12/21 15:32 Social History (Updated 04/12/21 @ 15:[address] Guilherme Romero, DO) Smoking Status: Former smoker substance use type: marijuana ROS ROS ED Constitutional Constitutional ED: Denies chills or weight loss Eyes Eyes: Denies change in vision or diplopia ENT ENT ED: Denies ear pain, rhinorrhea or sore throat Cardiovascular Cardiovascular: Denies chest pain, orthopnea, palpitations or racing heartbeat Respiratory/Chest Respiratory/Chest: Denies cough, dyspnea or orthopnea Gastrointestinal Gastrointestinal: Reports abdominal pain, nausea and vomiting; Denies diarrhea Genitourinary Genitourinary ED: Denies dysuria, hematuria or urinary frequency Musculoskeletal Musculoskeletal: Denies arthralgias or myalgias Integumentary Denies abscess or rash Neurologic Neurologic: Denies headache(s) or weakness Psychiatric Psychiatric: Denies anxiety, depression, suicidal ideation or suicidal thoughts Endocrine Endocrinology: Denies polydipsia, polyphagia or polyuria Allergic/Immunologic Allergic/Immunologic ED: Denies mouth swelling, tongue swelling or urticaria EXAM Physical Exam Narrative Exam Narrative: Patient lying in the bed with his knees bent up. Const Vital Signs: 04/12/21 15:32 04/12/21 17:56 Temperature 97.6 F L Temperature Source Temporal Pulse Rate 50 L 52 L Respiratory Rate 19 H 16 Blood Pressure 139/76 H 136/81 H Blood Pressure Mean 97 99 Pulse Ox 98 97 Oxygen Delivery Method Room Air Room Air Positive well nourished and well developed General Appearance ED: well developed HEENT Reports normocephalic, head/scalp atraumatic and moist mucous membranes Eyes PERRL and EOMs intact bilaterally Neck no lymphadenopathy, supple and no JVD Resp normal respiratory effort and clear to auscultation bilaterally Cardio regular rate, regular rhythm and no murmurs GI Palpation: soft, tender and guarding; Negative for rebound tenderness present Back/Spine no CVA tenderness and normal ROM Extremity normal to inspection General Extremety ED: Negative for edema General Extremity: Negative for edema Neuro oriented x3 and CN's II-XII intact bilaterally Sensorium / Orientation: alert Motor Exam: strength 5/5 throughout Psych mental status grossly normal Mood & Affect: Negative for depressed or tearful Skin no rashes or lesions noted and no wounds MDM MDM MDM Narrative Medical decision making narrative: White count is normal at 10.2. There is a section of the proximal colon that shows wall thickening consistent with a colitis. Patient received morphine Zofran and Ativan. He has been resting comfortably.Patient will be started on Cipro and Flagyl. I can write for pain and nausea medication. Patient was advised I strongly urged him to follow-up with gastroenterology as this is yet another case of colitis for him. Lab Data Attestation: I reviewed the patient's lab results. Labs: Laboratory Results - last 24 hr 04/12/21 04/12/21 15:45 15:45 WBC 10.2 RBC 5.18 Hgb 15.5 Hct 44.4 MCV 85.7 MCH 29.9 MCHC 34.9 RDW Std Deviation 37.8 RDW Coeff of [place] 12.0 Plt Count 239 MPV 10.1 Immature Gran % (Auto) 0.400 Neut % (Auto) 85.9 H Lymph % (Auto) 10.0 L [place] % (Auto) 3.3 Eos % (Auto) 0.0 Baso % (Auto) 0.4 Absolute Neuts (auto) 8.8 H Absolute Lymphs (auto) 1.02 Nucleated RBC % 0 Sodium 139 Potassium 4.5 Chloride 107 Carbon Dioxide 26.0 Anion Gap 6 BUN 18 Creatinine 1.13 Estim Creat Clear Calc 86.41 Est GFR (MDRD) Af Amer 92 Est GFR (MDRD) Non-Af 76 BUN/Creatinine Ratio 15.9 Glucose 139 H Calcium 9.3 Total Bilirubin 0.90 AST 37 ALT 28 Alkaline Phosphatase 60 Total Protein 8.2 Albumin 4.3 Globulin 3.9 Albumin/Globulin Ratio 1.1 Lipase 53 L Radiography Diagnostic Testing: Radiology Impression Abdomen/Pelvis CT 04/12/21 15:55 IMPRESSION: Wall thickening of the proximal colon may be related to a regional form of colitis, similar to previous study. Electronically Signed: Sven Landrum DO at 17:57 EDT Tel [phone], Service support , Discharge Plan Triage Chief Complaint: Abd Pain ED Provider: Guilherme Romero Dx/Rx/DC Orders Clinical Impression: Acute colitis, Abdominal pain, acute, Vomiting Instructions: ED Vomiting (Adult) Prescriptions: New hydrocodone-acetaminophen [hydrocodone-acetaminophen] 1 TABLET tablet 1 tab PO Q6H PRN PRN (Reason: Pain) 3 Days Qty: 12 RF: 0 metronidazole [metronidazole] 500 MG tablet 500 mg PO Q8H Qty: 30 RF: 0 ciprofloxacin HCl [ciprofloxacin HCl] 500 MG tablet 500 mg PO BID Qty: 20 RF: 0 ondansetron [ondansetron] 4 MG tablet 4 mg PO Q8H PRN PRN (Reason: Nausea) Qty: 10 RF: 0 No Action fluoxetine 20 MG capsule 40 mg PO QHS RF: 0 acidophilus-pectin, citrus 1 TABLET tablet 1 tab PO TID RF: 0 metronidazole 500 MG tablet 500 mg PO TID Qty: 15 RF: 0 ciprofloxacin HCl 500 MG tablet 500 mg PO BID Qty: 14 RF: 0 ondansetron HCl 4 MG tablet 4 mg PO Q6H PRN PRN (Reason: Nausea/vomiting) Qty: 30 RF: 0 Primary Care Provider: Kervin Zuniga Referrals: Kervin Zuniga DO [Primary Care Provider] - 3-5 Days if not improving Disposition Disposition: Home, self care
[2021-04-12] MEDS: 0.9% Normal Saline 1,000 ML 1000 ML IV (16:04)
[2021-04-12] MEDS: Morphine 4 MG/ML Syringe IV (16:05)
[2021-04-12] MEDS: Ondansetron 4 MG/2 ML Vial IV (16:05)
[2021-04-12 16:23] LABS: Absolute Lymphocyte Count 1.02 X10^3/uL (0.83-4.51); Absolute Neutrophil Count 8.8 X10^3/uL (2.0-7.7); Basophil# 0.04 X10^3/uL; Basophil% 0.4 % (0-1); Hematocrit 44.4 % (40-54); Hemoglobin 15.5 g/dL (13.0-16.5); Lymphocyte # 1.02 X10^3/ul (0.83-4.51); Mean Corp Hgb Conc 34.9 g/dL (32-36); Mean Corpuscular Hgb 29.9 pg (27.0-32.0); Mean Corpuscular Volume 85.7 fL (80-94); Mean Platelet Vol. 10.1 fl (6.2-12.0); Monocyte# 0.34 X10^3/uL; Monocyte% 3.3 % (0-10); NRBC Flagged by Analyzer 0 % (0-5); Neutrophil % 85.9 % (47-70); Platelet Count 239 K/mm3 (150-450); RBC Distribution Width SD 37.8 fl (35.1-43.9); Red Blood Count 5.18 M/mm3 (4.6-6.2); White Blood Count 10.2 K/mm3 (4.4-11.0)
[2021-04-12 16:47] LABS: ALB/GLOB Ratio 1.1 RATIO (0.9-2.4); AST(SGOT) 37 U/L (15-37); Alanine Aminotransfer ALT/SGPT 28 U/L (16-61); Albumin, Serum 4.3 g/dL (3.2-5.0); Alkaline Phosphatase 60 U/L (45-117); Anion Gap 6 (5-15); BUN 18 mg/dL (7-18); BUN/Creat Ratio 15.9 RATIO (10-20); Calcium,Total 9.3 mg/dL (8.5-10.1); Chloride 107 mmol/L (98-107); Creatinine, Serum 1.13 mg/dL (0.70-1.30); EST Glomerular Filtration Rate 76 mL/min (>60); Est Glom Filt Rate - Afr Amer 92 mL/min (>60); Estimated Creatinine Clearance 86.41 ml/min; Globulin 3.9 g/dL (2.2-4.2); Glucose 139 mg/dL (74-106); Lipase 53 U/L (73-393); Potassium 4.5 mmol/L (3.5-5.1); Protein, Total 8.2 g/dL (6.4-8.2); Sodium Level 139 mmol/L (136-145)
[2021-04-12] MEDS: LORazepam 2 MG/ML Syringe 1 MG IV (17:20)
[2021-04-12] MEDS: Ketorolac 30 MG/ML Syringe IV (17:25)
[2021-04-12 17:56] VITALS: BP 136/81; PULSE 52; RESP 16; O2SAT 97
[2021-04-12 18:29] VITALS: BP 132/81; PULSE 52; RESP 16; O2SAT 97
== END 2021-04-12 18:43 | disposition home or self-care (01) ==
PROVIDERS: Emergency Provider Emergency Medicine; PCP Family Medicine
DX: K52.9 Noninfective gastroenteritis and colitis, unspecified (principal); Z87.891 Personal history of nicotine dependence
CPT/HCPCS: 74177; 80053; 83690; 85025; 96374; 96375; 99283; J7030; Q9967; A4216; J2405

== ENCOUNTER 2021-11-03 10:48 | Emergency (ER) | payer BC, SELFPAY ==
[2021-11-03 10:50] VITALS: BP 132/98; PULSE 59; RESP 14; TEMP 36.3; O2SAT 99; BMI 22.1
--- NOTE | 2021-11-03 11:25 | ED.VIS.GI ---
HPI HPI - GI History of Present Illness Chief Complaint: Abd Pain Narrative Narrative: Patient presents with diffuse abdominal pain, nausea, and vomiting that has had for the last 8 days. He states he was seen by his primary care physician and started on prednisone for previous colitis. He denies any fevers or chills. Today, he had a bowel movement that was not diarrhea, but began having increased pain diffusely in his abdomen, and with nausea and vomiting without any blood in his emesis. He denies any blood in his stool. No exacerbating or alleviating factors to his diffuse abdominal pain. He states his had problems with colitis in the past. His first bout was 3 years ago, then he gets 1 or 2 exacerbations per year. He states that he had something similar to this in March of this year. He was placed on antibiotics and that resolved. He states he does not have past medical history of a diagnosis of ulcerative colitis or Crohn's. [facility] Medical History (Updated 11/03/21 @ 15:32 by Dougie Nielson MD) Colitis Depression Home Medications bupropion HCl 300 mg PO DAILY 11/03/21 [History Last Taken Unknown] dicyclomine 20 mg PO BID PRN #20 tab 11/03/21 [Rx Last Taken Unknown] famotidine [Pepcid] 20 mg PO DAILY #14 tab 11/03/21 [Rx Last Taken Unknown] ondansetron 4 mg PO Q6H PRN #20 tab 11/03/21 [Rx Last Taken Unknown] prednisone 10 mg PO DAILY 11/03/21 [History Last Taken Unknown] Allergy/AdvReac Type Severity Reaction Status Date / Time No Known Allergies Allergy Verified 11/03/21 10:51 Surgical History (Updated 11/03/21 @ 11:34 by Wanda Batista) History of rhinoplasty History of vasectomy Social History Smoking Status: Former smoker substance use type: marijuana ROS ROS ED ROS Narrative Constitutional: No fever, no chills. HEENT: No sore throat. No neck pain. No loss of vision. No rhinorrhea. Cardiovascular: No chest pain. No palpitations. No pedal edema. Respiratory: No cough, no shortness of breath. Abdominal: Positive diffuse abdominal pain. Positive nausea. Positive vomiting. No diarrhea. No blood in stool. Genitourinary: No dysuria. No hematuria. Musculoskeletal: No myalgias. No arthralgias. Neurologic: No headaches. No dizziness. No lightheadedness. Skin: No rash. No change in color. Psychiatric: No depression. No anxiety. EXAM Physical Exam Narrative Exam Narrative: Afebrile. Vital signs noted. HEENT: Normocephalic. Atraumatic. PERRL, EOMI. Neck soft and supple. No point tenderness or step off. Cardiovascular: Regular rate and rhythm. No murmurs, rubs, or gallops appreciated. Respiratory: No tachypnea. Lungs clear to auscultation bilaterally. Gastrointestinal: Abdomen soft, minimal diffuse tenderness to palpation, with normoactive bowel sounds. No rebound or guarding. Neurological: Awake. Alert. Nonfocal, nonlateralizing. Skin: No rash. Normal color. No pallor. Musculoskeletal: No pedal edema. Full range of motion extremities. Const Vital Signs: 11/03/21 10:50 11/03/21 13:51 Temperature 97.4 F L Temperature Source Temporal Pulse Rate 59 L 60 Respiratory Rate 14 18 Blood Pressure 132/98 H 134/88 H Blood Pressure Mean 109 103 Pulse Ox 99 98 Oxygen Delivery Method Room Air Room Air MDM MDM MDM Narrative Medical decision making narrative: Comprehensive work-up was pursued. He was administered Zofran and morphine for analgesia and bolused normal saline 1 L intravenously. I will obtain CBC, CMP, and lipase along with a CT of the abdomen pelvis with IV contrast. His laboratory work shows slightly elevated white count of 11.1 which I think is nonspecific and may be demargination from his vomiting. Hemoglobin stable at 15.2. His CMP shows normal electrolytes, no evidence of dehydration. AST and ALT are normal. His lipase is slightly elevated at 444, however CT of the abdomen pelvis with IV contrast shows no inflammation around the pancreas. There is an incidental adrenal adenoma for which she will follow up with his primary care physician. Upon repeat examination he was having additional dry heaving. He was administered Zofran and an additional pain medication in the form of morphine. Upon repeat examination, he feels improved. He had received IV Pepcid. At this point in time, he will be given prescriptions for Bentyl, Zofran, and Pepcid for 2 weeks. He was referred to gastroenterology. He states he has not been to a house worker in a few years, however he had clean upper and lower scopes at that time. I am unsure as to the cause of his abdominal pain currently, yet I feel he can be discharged safely home with follow-up. He will follow up with his primary care physician for his adrenal adenoma. Disposition is discharged home in stable condition. Return instructions were reviewed. Lab Data Labs: Laboratory Results - last 24 hr 11/03/21 11/03/21 11:38 11:38 WBC 11.1 H RBC 5.22 Hgb 15.2 Hct 45.1 MCV 86.4 MCH 29.1 MCHC 33.7 RDW Std Deviation 39.0 RDW Coeff of [place] 12.3 Plt Count 279 MPV 9.3 Immature Gran % (Auto) 0.400 Neut % (Auto) 84.1 H Lymph % (Auto) 11.0 L [place] % (Auto) 3.6 Eos % (Auto) 0.4 Baso % (Auto) 0.5 Absolute Neuts (auto) 9.3 H Absolute Lymphs (auto) 1.22 Nucleated RBC % 0 Sodium 139 Potassium 4.4 Chloride 105 Carbon Dioxide 32.0 Anion Gap 2 L BUN 17 Creatinine 0.91 Estim Creat Clear Calc 105.77 Est GFR (MDRD) Af Amer 119 Est GFR (MDRD) Non-Af 98 BUN/Creatinine Ratio 18.7 Glucose 112 H Calcium 9.6 Total Bilirubin 0.40 AST 16 ALT 30 Alkaline Phosphatase 74 Total Protein 7.8 Albumin 4.0 Globulin 3.8 Albumin/Globulin Ratio 1.1 Lipase 444 H Radiography Diagnostic Testing: Clinical Impression(s) from Imaging Studies Abdomen/Pelvis CT 11/03/21 12:28 IMPRESSION: Distended urinary bladder. Findings suggestive of a 1.6 cm left adrenal adenoma. Electronically Signed: Shaq Poole MD at 12:56 EST , Service support , Discharge Plan Triage Chief Complaint: Abd Pain ED Provider: Dougie Nielson Dx/Rx/DC Orders Clinical Impression: Abdominal pain, Nausea & vomiting, Gastritis, Adrenal incidentaloma Instructions: ED Diet for Vomiting or ..., ED PEPTIC ULCER vs GASTRITIS, ED Vomiting (Adult), ED Abdominal Pain Unkn Cause Male... Prescriptions: New ondansetron 4 mg tablet,disintegrating 4 mg PO Q6H PRN (Reason: nausea and vomiting) Qty: 20 RF: 0 famotidine [Pepcid] 20 mg tablet 20 mg PO DAILY Qty: 14 RF: 0 dicyclomine 20 mg tablet 20 mg PO BID PRN (Reason: abdominal discomfort) Qty: 20 RF: 0 No Action prednisone 20 mg tablet 10 mg PO DAILY RF: 0 bupropion HCl 300 mg tablet extended release 24 hr 300 mg PO DAILY RF: 0 Primary Care Provider: Kervin Zuniga Referrals: Kervin Zuniga DO [Primary Care Provider] - 11/04/21 (Follow up with your Primary Care Provider regarding your abnormal CT finding) Friend,DO Alexis [STAFF PHYSICIAN] - 11/10/21 Disposition Disposition: Home, Self Care
[2021-11-03] MEDS: Morphine 4 MG/ML Syringe IV ×2 (11:42→13:23)
[2021-11-03] MEDS: 0.9% Normal Saline 1,000 ML 1000 ML IV (11:42)
[2021-11-03] MEDS: Ondansetron 4 MG/2 ML Vial IV ×2 (11:42→13:46)
[2021-11-03 11:53] LABS: Absolute Lymphocyte Count 1.22 X10^3/uL (0.83-4.51); Absolute Neutrophil Count 9.3 X10^3/uL (2.0-7.7); Basophil# 0.05 X10^3/uL; Basophil% 0.5 % (0-1); Eosinophil# 0.04 X10^3/uL; Eosinophils% 0.4 % (0-5); Hematocrit 45.1 % (40-54); Hemoglobin 15.2 g/dL (13.0-16.5); Lymphocyte # 1.22 X10^3/ul (0.83-4.51); Mean Corp Hgb Conc 33.7 g/dL (32-36); Mean Corpuscular Hgb 29.1 pg (27.0-32.0); Mean Corpuscular Volume 86.4 fL (80-94); Mean Platelet Vol. 9.3 fl (6.2-12.0); Monocyte% 3.6 % (0-10); NRBC Flagged by Analyzer 0 % (0-5); Neutrophil % 84.1 % (47-70); Platelet Count 279 K/mm3 (150-450); RBC Distribution Width CV 12.3 % (11.6-14.6); Red Blood Count 5.22 M/mm3 (4.6-6.2); White Blood Count 11.1 K/mm3 (4.4-11.0)
[2021-11-03 12:10] LABS: ALB/GLOB Ratio 1.1 RATIO (0.9-2.4); AST(SGOT) 16 U/L (15-37); Alanine Aminotransfer ALT/SGPT 30 U/L (16-61); Alkaline Phosphatase 74 U/L (45-117); Anion Gap 2 (5-15); BUN 17 mg/dL (7-18); BUN/Creat Ratio 18.7 RATIO (10-20); Calcium,Total 9.6 mg/dL (8.5-10.1); Chloride 105 mmol/L (98-107); Creatinine, Serum 0.91 mg/dL (0.70-1.30); EST Glomerular Filtration Rate 98 mL/min (>60); Est Glom Filt Rate - Afr Amer 119 mL/min (>60); Estimated Creatinine Clearance 105.77 ml/min; Globulin 3.8 g/dL (2.2-4.2); Glucose 112 mg/dL (74-106); Lipase 444 U/L (73-393); Potassium 4.4 mmol/L (3.5-5.1); Protein, Total 7.8 g/dL (6.4-8.2); Sodium Level 139 mmol/L (136-145)
--- NOTE | 2021-11-03 12:28 | CT_ITS ---
STUDY: CT ABDOMEN AND PELVIS WITH CONTRAST REASON FOR EXAM: Male, 41 years old. Abdominal Pain. History of colitis. RADIATION DOSAGE (If Supplied By Facility): CTDIvol = ( 14.53 ) mGy, DLP = ( 462.74 ) mGycm TECHNIQUE: Transaxial images were obtained from the dome of the diaphragm to the symphysis pubis without oral contrast. IV 100mL Isovue-300 was administered. Sagittal and coronal images were reconstructed. Individualized dose optimization techniques were used for this CT. COMPARISON: Comparison is made with prior study dated 04/12/2021. FINDINGS: The visualized lung bases are unremarkable. The visualized portions of the heart are within normal limits. Normal liver. Normal gallbladder and extrahepatic biliary system. Normal spleen. Normal pancreas. There is a small, circumscribed, smooth, low attenuation left adrenal mass, consistent with an adrenal adenoma. This measures 1.6 cm. Normal right adrenal gland. Normal right kidney. Normal left kidney. There is a small hiatal hernia. Normal small intestine. Moderate amount of fecal material is seen in the colon. The appendix is visualized and appears normal. Normal abdominal aorta. Normal inferior vena cava. Normal retroperitoneum. Distended urinary bladder. There is a small umbilical hernia containing fat. Normal osseous structures. CT/Abdomen/Pelvis W IV Cont ONLY IMPRESSION: Distended urinary bladder. Findings suggestive of a 1.6 cm left adrenal adenoma. Electronically Signed: Shaq Poole MD at 12:56 EST , Service support ,
[2021-11-03] MEDS: Contrast Allergy Safety Check IV (13:36)
[2021-11-03 13:51] VITALS: BP 134/88; PULSE 60; RESP 18; O2SAT 98
[2021-11-03] MEDS: Famotidine 20 MG in 0.9% NS 10 ML 300 MG IV (14:15)
[2021-11-03 16:16] VITALS: BP 149/87; PULSE 82; RESP 20; O2SAT 99
--- NOTE | 2021-11-03 16:20 | ED.RN ---
THIS NURSE REVIEWED D/C INSTRUCTIONS WITH PT AND GIRLFRIEND. BOTH VERBALIZED UNDERSTANDING OF INSTRUCTIONS. IV D/C. IV CATHETER INTACT. PT TOLERATED WELL. PT DENIES FURTHER NEEDS OR QUESTIONS AT THIS TIME. PT AMBULATES FROM ROOM ON OWN WITHOUT ASSISTANCE FROM STAFF
== END 2021-11-03 16:24 | disposition home or self-care (01) ==
PROVIDERS: Emergency Provider Emergency Medicine; PCP Family Medicine
DX: K29.70 Gastritis, unspecified, without bleeding (principal); R11.2 Nausea with vomiting, unspecified; R10.9 Unspecified abdominal pain; F12.10 Cannabis abuse, uncomplicated; Z87.891 Personal history of nicotine dependence; F32.A Depression, unspecified; Z79.52 Long term (current) use of systemic steroids; Z79.899 Other long term (current) drug therapy
CPT/HCPCS: 74177; 80053; 83690; 85025; 96361; 96374; 96375; 96376; 99283; J7030; Q9967; A4216; J2405; J3490

== ENCOUNTER 2021-12-02 09:56 | Outpatient (CLI) | payer BC, SELFPAY ==
[2021-12-02 11:31] LABS: CRP 3.07 mg/L (0.0-3.0); LDH 169 U/L (87-241)
[2021-12-04 15:07] LABS: Anti-Centromere B Ab <0.2 AI (0.0-0.9); Anti-Chromatin <0.2 AI (0.0-0.9); Anti-Jo <0.2 AI (0.0-0.9); Anti-Scleroderma-70 AB <0.2 AI (0.0-0.9); RNP Ab <0.2 AI (0.0-0.9); SJOGREN'S Anti-SS-A test < 0.2 AI (0.0-0.9); SJOGREN'S Anti-SS-B test < 0.2 AI (0.0-0.9); Smith Ab <0.2 AI (0.0-0.9)
[2021-12-04 16:02] LABS: Anti-dsDNA Ab 1 IU/mL (0-9)
[2021-12-07 08:09] LABS: Cytoplasmic Ab (C-ANCA) <1:20 titer (Neg:<1:20); Endomysial Antibody IgA Negative (Negative); Immunoglobulin A 228 mg/dL (90-386); Immunoglobulin E 33 IU/mL (6-495); Immunoglobulin G 1048 mg/dL (603-1613)
[2021-12-07 10:42] LABS: C-Peptide 1.2 ng/mL (1.1-4.4); Carbohydrate AG 19-9 8 U/mL (0-35); Immunoglobulin M 50 mg/dL (20-172); Perinuclear Ab (P-ANCA) <1:20 titer (Neg:<1:20); t-Transglutaminase IgA <2 U/mL (0-3)
== END 2021-12-02 23:59 | disposition short-term general hospital (02) ==
PROVIDERS: PCP Family Medicine; Referring Provider Internal Medicine Gastroenterology; Visit Provider Internal Medicine Gastroenterology
DX: D35.02 Benign neoplasm of left adrenal gland (principal)
CPT/HCPCS: 36415; 82533; 82784; 82785; 83516; 83615; 84681; 86140; 86225; 86235; 86255; 86256; 86301

== ENCOUNTER 2021-12-06 15:54 | Outpatient (CLI) | payer BC, SELFPAY ==
[2021-12-13 09:23] LABS: 5-HIAA, 24UR 7.6 mg/24 hr (0.0-14.9); 5-HIAA, UR 4.6 mg/L (Undefined)
== END 2021-12-06 23:59 | disposition short-term general hospital (02) ==
LOC: LABSPEC 15:56
PROVIDERS: PCP Family Medicine; Visit Provider Internal Medicine Gastroenterology
DX: K52.9 Noninfective gastroenteritis and colitis, unspecified (principal); R10.9 Unspecified abdominal pain
CPT/HCPCS: 81050; 83497

== ENCOUNTER 2021-12-13 15:51 | Outpatient (CLI) | payer BC, SELFPAY ==
[2021-12-16 21:14] LABS: Porphobilinogen, 24 Hr UR REF LAB
== END 2021-12-13 23:59 | disposition short-term general hospital (02) ==
LOC: LABSPEC 15:52
PROVIDERS: PCP Family Medicine; Referring Provider Internal Medicine Gastroenterology; Visit Provider Internal Medicine Gastroenterology
DX: K52.9 Noninfective gastroenteritis and colitis, unspecified (principal); R10.9 Unspecified abdominal pain
CPT/HCPCS: 81050; 84110

== ENCOUNTER 2021-12-16 15:49 | Outpatient (CLI) | payer BC, SELFPAY | END 2021-12-16 23:59 | disposition short-term general hospital (02) | LOC: LABSPEC 15:51 | PROVIDERS: PCP Family Medicine; Visit Provider Internal Medicine Gastroenterology | DX: R10.9 Unspecified abdominal pain (principal); K52.9 Noninfective gastroenteritis and colitis, unspecified | CPT/HCPCS: 81050; 84120 ==

== ENCOUNTER 2022-01-03 17:00 | Outpatient (CLI) | payer BC, SELFPAY ==
--- NOTE | 2022-01-03 17:03 | MRI_ITS ---
History: pancreatitis, lower abd pain EXAMINATION: MR MRCP W/O Contrast TECHNIQUE: Multiplanar and multisequence MR images of the abdomen were obtained with MRCP sequence. Three-dimensional post-processing reconstructions were performed. IV Contrast dosage and agent: None. COMPARISON: CT abdomen November 03, 2021 FINDINGS: LIVER: Stable 8 mm cyst within hepatic segment 4. Normal morphology. GALLBLADDER AND BILIARY TREE: No gallstones. No gallbladder distension or wall edema. The extrahepatic CBD measures 4 mm. No intra- or extrahepatic biliary dilation. No choledochal filling defect . PANCREAS: No mass. No pancreatic duct dilation. SPLEEN: Non-enlarged. ADRENAL GLANDS: No nodules. KIDNEYS: Normal renal size and position. No hydronephrosis. No mass. LYMPH NODES: No enlarged periportal or retroperitoneal lymph nodes. PERITONEUM: No ascites or fluid collection. VESSELS: Aorta is non-dilated. LOWER CHEST: No pleural effusion. MRI/MRCP Abdomen without Contrast IMPRESSION: Unremarkable MRCP. No biliary dilation or choledocolithiasis. at 0817 Reported and signed by: Dustin Coto MD Electronically Signed: Dustin Coto MD at 8:16 EST ,
== END 2022-01-03 23:59 | disposition home or self-care (01) ==
PROVIDERS: PCP Family Medicine; Visit Provider Internal Medicine Gastroenterology
DX: K85.90 Acute pancreatitis without necrosis or infection, unspecified (principal); R10.30 Lower abdominal pain, unspecified
CPT/HCPCS: 74181

== ENCOUNTER 2022-01-25 15:54 | Outpatient (CLI) | payer BC, SELFPAY ==
[2022-01-27 14:11] LABS: Alpha-1-Globulins 0.2 g/dL (0.0-0.4); Alpha-2-Globulins 0.7 g/dL (0.4-1.0); Gamma Globulin 0.9 g/dL (0.4-1.8); Immunoglobulin A 200 mg/dL (90-386); Immunoglobulin G 932 mg/dL (603-1613); Immunoglobulin M 55 mg/dL (20-172); PROEL- TOTAL PROTEIN 6.8 g/dL (6.0-8.5)
== END 2022-01-25 23:59 | disposition home or self-care (01) ==
LOC: LAB 15:55
PROVIDERS: Nurse Practitioner Adult Health; PCP Family Medicine; Referring Provider Internal Medicine Gastroenterology; Visit Provider Internal Medicine Gastroenterology
DX: K85.90 Acute pancreatitis without necrosis or infection, unspecified (principal)
CPT/HCPCS: 36415; 82784; 84165; 86334

== ENCOUNTER 2022-01-31 15:51 | Outpatient (CLI) | payer BC, SELFPAY ==
[2022-02-06 17:54] LABS: Fats, Neutral Normal (.); Fats, Total Increased (.)
[2022-02-07 11:11] LABS: Coproporphyrin I, Urine 15 ug/L (Undefined); Coproporphyrin I,24 Hour 26 ug/24 hr (0-24); Coproporphyrin III, Urine 45 ug/L (Undefined); Heptacarboxylporph.,24 Hour 3 ug/24 hr (0-4); Heptacarboxylporph.,Urine 2 ug/L (Undefined); Hexacarboxylporph.,24 Hour <2 ug/24 hr (0-1); Hexacarboxylporph.,Urine <1 ug/L (Undefined); Pentacarboxylporph,24 Hour 3 ug/24 hr (0-4); Pentacarboxylporphyrin,Urine 2 ug/L (Undefined); Uroporphyrin, 24 Hour 10 ug/24 hr (0-24); Uroporphyrin,Urine 6 ug/L (Undefined)
[2022-02-07 13:55] LABS: Coproporphyrin III,24 Hour 77 ug/24 hr (0-74)
== END 2022-01-31 23:59 | disposition home or self-care (01) ==
LOC: LAB 15:53 → LABSPEC 15:54
PROVIDERS: Nurse Practitioner Adult Health; PCP Family Medicine; Referring Provider Internal Medicine Gastroenterology; Visit Provider Internal Medicine Gastroenterology
DX: K85.90 Acute pancreatitis without necrosis or infection, unspecified (principal)
CPT/HCPCS: 36415; 81050; 82705; 84120

== ENCOUNTER 2022-06-25 15:40 | Emergency (ER) | payer BC, SELFPAY ==
[2022-06-25 15:41] VITALS: BP 159/100; PULSE 63; RESP 18; TEMP 35.8; O2SAT 99; BMI 22.3
--- NOTE | 2022-06-25 15:54 | ED.VIS.GI ---
HPI HPI - GI History of Present Illness Chief Complaint: Abd Pain Detail of Chief Complaint: Abdominal pain times an hour and a half Informant: patient Nausea/Vomiting/Emesis GI Symptom: Positive for Nausea and Vomiting Narrative Narrative: Patient presents to the emergency department complaint of abdominal pain at*about an hour and a half ago. Patient states that he has a similar problem like this about every 6 months. This is very typical of his presentation. Patient states that he has porphyria and has been seeing Dr. Fields and is scheduled to see some specialist for it. Patient denies any fever. He denies diarrhea. Describes the pain is left lower quadrant. Currently rates pain a 6 out of 10. Has had multiple episodes of vomiting with this. They attempted to take hydrocodone at home as well as dicyclomine but he threw it up. Prior similar symptoms: Yes PFSH PFSH Medical History (Updated 06/25/22 @ 17:[address] South Lay, DO) Colitis Depression Porphyria Home Medications bupropion HCl 300 mg 24 hr tablet, extended release 300 mg PO DAILY 11/03/21 [History Last Taken Unknown] dicyclomine 20 mg tablet 20 mg PO BID PRN abdominal discomfort #20 tabs 11/03/21 [Rx Last Taken Unknown] famotidine 20 mg tablet (Pepcid) 20 mg PO DAILY #14 tabs 11/03/21 [Rx Last Taken Unknown] ondansetron 4 mg disintegrating tablet 4 mg PO Q6H PRN nausea and vomiting #20 tabs 11/03/21 [Rx Last Taken Unknown] promethazine 25 mg rectal suppository 25 mg ID Q6H PRN nausea and vomiting #12 ea 02/02/22 [Rx Last Taken Unknown] hydrocodone-acetaminophen 5-325mg 5mg-325mg 1 tab PO Q4H PRN PRN Pain 2 days #10 TABLETS 06/25/22 [Rx Last Taken Unknown] ondansetron 4 mg disintegrating tablet 4 mg PO Q8H PRN PRN Nausea #10 tabs 06/25/22 [Rx Last Taken Unknown] oxycodone 5 mg tablet 5 mg PO Q4H PRN Pain 06/25/22 [History Last Taken Unknown] Allergy/AdvReac Type Severity Reaction Status Date / Time No Known Allergies Allergy Verified 06/25/22 15:41 Surgical History (Updated 11/03/21 @ 11:34 by Wanda Batista) History of rhinoplasty History of vasectomy Social History Smoking Status: Former smoker substance use type: marijuana ROS ROS ED Review of Systems ROS Unobtainable: other Constitutional Constitutional ED: Reports lethargy; Denies chills, fever(s), sweats or weight loss Eyes Eyes: Denies blurry vision, change in vision or diplopia ENT ENT ED: Denies rhinorrhea or sore throat Cardiovascular Cardiovascular: Reports chest pain and racing heartbeat; Denies orthopnea Respiratory/Chest Respiratory/Chest: Reports dyspnea and dyspnea on exertion; Denies cough, orthopnea or sputum Gastrointestinal Gastrointestinal: Reports abdominal pain, nausea and vomiting; Denies diarrhea Genitourinary Genitourinary ED: Denies dysuria, hematuria or urinary frequency Musculoskeletal Musculoskeletal: Denies arthralgias, back pain, myalgias or neck pain Integumentary Denies abscess, Abrasions or rash Neurologic Neurologic: Denies headache(s) or weakness Psychiatric Psychiatric: Denies anxiety, depression or suicidal thoughts Endocrine Endocrinology: Denies polydipsia, polyphagia or polyuria Hematologic/Lymphatic Hematologic/Lymphatic: Denies easy bleeding, easy bruising or lymphadenopathy Allergic/Immunologic Allergic/Immunologic ED: Denies mouth swelling, tongue swelling or urticaria EXAM Physical Exam Const Vital Signs: 06/25/22 15:41 06/25/22 16:22 06/25/22 17:08 Temperature 96.5 F L Temperature Source Temporal Pulse Rate 63 48 L 56 L Respiratory Rate 18 16 Blood Pressure 159/100 H 130/84 H 120/79 Blood Pressure Mean 119 99 92 Pulse Ox 99 99 98 Oxygen Delivery Method Room Air Room Air Nasal Cannula Oxygen Flow Rate (L/min) 2 Positive well nourished and well developed General Appearance ED: well developed and NAD HEENT Reports TM's clear and moist mucous membranes normocephalic and atraumatic; Negative for trauma or tenderness Tympanic Membrane ED: Yes TM's clear Eyes PERRL and EOMs intact bilaterally General Eye ED: Negative for pale conjunctiva or scleral icterus Neck no lymphadenopathy, supple and no JVD General: Negative for tenderness Chest Wall inspection of chest normal and palpation of chest normal Chest: Negative for tenderness Resp normal respiratory effort and clear to auscultation bilaterally Effort and Inspection: Negative for respiratory distress or pain with movement Auscultation: Negative for rhonchi, wheezes or diminished lung sounds Cardio regular rate, regular rhythm, S1 normal heart sound, S2 normal heart sound and no murmurs Peripheral Pulses: pulses 2+ throughout GI soft to palpation, non-distended and no masses GI Narrative: Normoactive bowel sounds. Patient has tenderness palpation over left lower quadrant with some guarding. There is no rebound, rigidity, or peritoneal signs. Back/Spine no CVA tenderness and no thoracic nor lumbar tenderness Extremity normal to inspection General Extremety ED: Negative for edema General Extremity: Negative for edema Neuro oriented x3, CN's II-XII intact bilaterally, no sensory deficits noted and gait normal Sensorium / Orientation: awake, alert, oriented to person, oriented to place and oriented to time Motor Exam: strength 5/5 throughout and strength abnormal Psych mental status grossly normal Skin no rashes or lesions noted and no wounds MDM MDM MDM Narrative Medical decision making narrative: IV line established on arrival. Patient was medicated Dilaudid and Zofran. Patient was given a second dose of Dilaudid and he had good pain relief with that. At this time he is resting comfortably. Lab work-up was essentially unremarkable he did have a slightly elevated white blood cell count of 12.0. Lactate was normal. LFTs were normal. CT scan of the M pelvis with IV contrast showed no acute disease process. I did discuss case with his keyboard instrument tuner Dr. Fields who had no further recommendations at this time. Patient will be discharged home with prescriptions for Madeline and a few Zofran tablets. Patient advised to follow-up with his keyboard instrument tuner as needed. Patient has acute intermittent porphyria. Lab Data Attestation: I reviewed the patient's lab results. Labs: Laboratory Results - last 24 hr 06/25/22 06/25/22 06/25/22 16:05 16:05 16:05 WBC 12.0 H RBC 5.31 Hgb 16.2 Hct 44.5 MCV 83.8 MCH 30.5 MCHC 36.4 H RDW Std Deviation 36.9 RDW Coeff of Rush 12.0 Plt Count 221 MPV 9.7 Immature Gran % (Auto) 0.300 Neut % (Auto) 77.3 H Lymph % (Auto) 14.2 L [place] % (Auto) 6.4 Eos % (Auto) 1.1 Baso % (Auto) 0.7 Absolute Neuts (auto) 9.3 H Absolute Lymphs (auto) 1.70 Nucleated RBC % 0 Sodium 138 Potassium 3.5 Chloride 106 Carbon Dioxide 27.0 Anion Gap 5 BUN 18 Creatinine 1.11 Estim Creat Clear Calc 89.90 Est GFR (MDRD) Af Amer 94 Est GFR (MDRD) Non-Af 77 BUN/Creatinine Ratio 16.2 Glucose 121 H Lactic Acid 1.7 Calcium 9.4 Total Bilirubin 0.40 AST 18 ALT 22 Alkaline Phosphatase 61 Total Protein 7.7 Albumin 4.2 Globulin 3.5 Albumin/Globulin Ratio 1.2 Radiography Diagnostic Testing: Clinical Impression(s) from Imaging Studies Abdomen/Pelvis CT 06/25/22 16:26 IMPRESSION: No acute abnormalities in the abdomen or pelvis. Electronically Signed: Alexis Rodney MD at 17:21 EDT , Discharge Plan Triage Chief Complaint: Abd Pain ED Provider: South Lay Dx/Rx/DC Orders Clinical Impression: Abdominal pain, Acute porphyria Instructions: ED Abdominal Pain Unkn Cause Male... Prescriptions: New hydrocodone-acetaminophen [hydrocodone-acetaminophen] 5-325 mg tablet 1 tab PO Q4H PRN PRN (Reason: Pain) 2 Days Qty: 10 0RF ondansetron [ondansetron] 4 mg tablet,disintegrating 4 mg PO Q8H PRN PRN (Reason: Nausea) Qty: 10 0RF No Action bupropion HCl 300 mg tablet extended release 24 hr 300 mg PO DAILY ondansetron 4 mg tablet,disintegrating 4 mg PO Q6H PRN (Reason: nausea and vomiting) Qty: 20 0RF famotidine [Pepcid] 20 mg tablet 20 mg PO DAILY Qty: 14 0RF dicyclomine 20 mg tablet 20 mg PO BID PRN (Reason: abdominal discomfort) Qty: 20 0RF oxycodone 5 mg Tablet 5 mg PO Q4H PRN (Reason: Pain) promethazine 25 mg suppository 25 mg ID Q6H PRN (Reason: nausea and vomiting) Qty: 12 2RF Primary Care Provider: Kervin Zuniga Referrals: Kervin Zuniga DO [Primary Care Provider] - Friend,DO Alexis [Med Staff - Active Staff] - As Needed Disposition Disposition: Home, Self Care
[2022-06-25] MEDS: 0.9% Normal Saline 1,000 ML 125 ML IV (16:07)
[2022-06-25] MEDS: Ondansetron 4 MG/2 ML Vial IV (16:07)
[2022-06-25] MEDS: HYDROmorphone 1 MG/ML Syringe IV ×2 (16:07→16:36)
[2022-06-25 16:22] VITALS: BP 130/84; PULSE 48; RESP 16; O2SAT 99
[2022-06-25 16:22] LABS: Absolute Neutrophil Count 9.3 X10^3/uL (2.0-7.7); Basophil# 0.08 X10^3/uL; Basophil% 0.7 % (0-1); Eosinophil# 0.13 X10^3/uL; Eosinophils% 1.1 % (0-5); Hematocrit 44.5 % (40-54); Hemoglobin 16.2 g/dL (13.0-16.5); Lymphocyte % 14.2 % (19-41); Mean Corp Hgb Conc 36.4 g/dL (32-36); Mean Corpuscular Hgb 30.5 pg (27.0-32.0); Mean Corpuscular Volume 83.8 fL (80-94); Mean Platelet Vol. 9.7 fl (6.2-12.0); Monocyte# 0.77 X10^3/uL; Monocyte% 6.4 % (0-10); NRBC Flagged by Analyzer 0 % (0-5); Neutrophil # 9.29 X10^3/uL (2.7-7.7); Neutrophil % 77.3 % (47-70); Platelet Count 221 K/mm3 (150-450); RBC Distribution Width SD 36.9 fl (35.1-43.9); Red Blood Count 5.31 M/mm3 (4.6-6.2)
--- NOTE | 2022-06-25 16:26 | CT_ITS ---
INDICATION: abdominal pain EXAMINATION: CT Abdomen And Pelvis W/ Contrast Injection TECHNIQUE: Helically acquired images were obtained of the abdomen and pelvis after IV contrast. A radiation dose optimization technique was used for this scan. IV Contrast dosage and agent: IV 100mL Isovue-370 Oral contrast: None. COMPARISON: None. FINDINGS: Visualized lung bases: Unremarkable Liver: Unremarkable Gallbladder: Unremarkable Spleen: Unremarkable Pancreas: Unremarkable Adrenal Glands: Unremarkable Kidneys: Unremarkable Vasculature: Unremarkable GI Tract: The appendix is mildly dilated, however there are no surrounding inflammatory changes. Lymphadenopathy: None Peritoneum: No ascites. Bladder: Unremarkable Reproductive organs: Unremarkable Bones/Soft tissues: No suspicious osseous or soft tissue lesions CT/Abdomen/Pelvis W IV Cont ONLY IMPRESSION: No acute abnormalities in the abdomen or pelvis. Electronically Signed: Alexis Rodney MD at 17:21 EDT ,
[2022-06-25] MEDS: Dicyclomine 20 MG/2 ML Vial IM (16:35)
[2022-06-25 16:48] LABS: ALB/GLOB Ratio 1.2 RATIO (0.9-2.4); AST(SGOT) 18 U/L (15-37); Alanine Aminotransfer ALT/SGPT 22 U/L (16-61); Albumin, Serum 4.2 g/dL (3.2-5.0); Alkaline Phosphatase 61 U/L (45-117); Anion Gap 5 (5-15); BUN 18 mg/dL (7-18); BUN/Creat Ratio 16.2 RATIO (10-20); Calcium,Total 9.4 mg/dL (8.5-10.1); Chloride 106 mmol/L (98-107); Creatinine, Serum 1.11 mg/dL (0.70-1.30); EST Glomerular Filtration Rate 77 mL/min (>60); Est Glom Filt Rate - Afr Amer 94 mL/min (>60); Globulin 3.5 g/dL (2.2-4.2); Glucose 121 mg/dL (74-106); Potassium 3.5 mmol/L (3.5-5.1); Protein, Total 7.7 g/dL (6.4-8.2); Sodium Level 138 mmol/L (136-145)
[2022-06-25 17:00] LABS: Lactic Acid 1.7 mmol/L (0.4-1.9)
[2022-06-25 17:08] VITALS: BP 120/79; PULSE 56; O2SAT 98
[2022-06-25 17:26] LABS: Mucous, Urine 0 SEEN /hpf (<or=2+); Red Blood Cells-Urine 0 SEEN /hpf (0-5); Squamous Epithelial Cells - UA 0 SEEN /hpf (0-5); White Blood Cells 0 SEEN /hpf (0-5)
[2022-06-25 17:31] LABS: Glucose, Dipstick Normal (Normal); Ketone-Dipstick 50 mg/dl (Negative); Leukocyte Esterase-Dipstick Negative /ul (Negative); Nitrite-Dipstick Negative (Negative); Occult Blood-Urine Negative /ul (Negative); Protein-Dipstick 30 mg/dl (Negative); Urine Bilirubin Dipstick Negative (Negative); Urine Urobilinogen Normal (Normal)
[2022-06-25 17:45] LABS: Color, Urine Yellow (Yellow); Urine Clarity Cloudy (Clear)
[2022-06-25 17:48] LABS: Bacteria 1+ /hpf (None Seen)
== END 2022-06-25 17:56 | disposition home or self-care (01) ==
PROVIDERS: Emergency Provider Emergency Medicine; PCP Family Medicine; Visit Provider Emergency Medicine
DX: R10.9 Unspecified abdominal pain (principal); E80.20 Unspecified porphyria; F12.90 Cannabis use, unspecified, uncomplicated; Z87.891 Personal history of nicotine dependence; Z79.899 Other long term (current) drug therapy
CPT/HCPCS: 74177; 80053; 81001; 83605; 85025; 96372; 96374; 96375; 96376; 99284; Q9967; J2405

== ENCOUNTER 2022-11-29 11:38 | Emergency (ER) | payer BC, SELFPAY ==
[2022-11-29 11:38] VITALS: BP 140/78; PULSE 78; RESP 16; TEMP 36.6; O2SAT 99; BMI 24.4
--- NOTE | 2022-11-29 11:58 | CT_ITS ---
EXAM: CT ABDOMEN AND PELVIS WITH INTRAVENOUS CONTRAST CLINICAL INDICATION: Abdominal pain. TECHNIQUE: Helically acquired images were obtained of the abdomen and pelvis with intravenous contrast. This CT exam was performed using one or more of the following dose reduction techniques: automated exposure control, adjustment of the mA and/or kV according to patient size, and/or use of iterative reconstruction technique. This report was created using [employer] report generation technology. CONTRAST: IV 100mL Isovue-300 RADIATION DOSE: CTDIvol = 10.93 mGy, DLP = 486.09 mGy-cm COMPARISON: CT abdomen and pelvis with contrast 06/25/2022. FINDINGS: ARTIFACTS: Motion degradation artifacts. LOWER THORAX: Unremarkable. Lung bases are clear. No cardiomegaly. No significant pericardial effusion. ABDOMEN: LIVER: Unremarkable. Homogeneous. No focal mass. GALLBLADDER AND BILE DUCTS: Unremarkable. No calcified gallstones. No gallbladder distention or wall edema. No intra- or extrahepatic biliary ductal dilation. PANCREAS: Unremarkable. No focal cystic or solid mass. SPLEEN: Unremarkable. Normal size without focal cystic or solid mass. ADRENALS: Unremarkable. No nodules. KIDNEYS AND URETERS: Unremarkable. Normal renal size and position. No hydronephrosis. STOMACH AND BOWEL: Mild enhancing borderline intramural thickening in the arthur of the rectum and portions of the sigmoid colon. No associated colonic diverticulosis. No stomach or bowel distention. PELVIS: APPENDIX: Normal. BLADDER: Unremarkable. REPRODUCTIVE: Unremarkable as visualized. No mass. ABDOMEN and PELVIS: INTRAPERITONEAL SPACE: Unremarkable. No ascites or other fluid collection. No free air. BONES/JOINTS: Unremarkable. No suspicious lytic or blastic abnormality. SOFT TISSUES: Unremarkable. No discrete abdominal or pelvic wall hernia. VASCULATURE: Unremarkable. Abdominal aorta is non-dilated. LYMPH NODES: Unremarkable. No enlarged lymph nodes. CT/Abdomen/Pelvis W IV Cont ONLY IMPRESSION: 1. Mild enhancing borderline intramural thickening in the arthur of the rectum and portions of the sigmoid colon without associated diverticulosis. If clinically warranted, colonoscopy will be helpful for further evaluation. 2. No significant interval change when compared to 06/25/2022. Electronically Signed: Dougie Araujo MD at 12:40 EST ,
--- NOTE | 2022-11-29 12:02 | EDS_ITS ---
HPI HPI - GI History of Present Illness Chief Complaint: Abd Pain Detail of Chief Complaint: Abdominal pain Informant: patient Narrative Narrative: Patient presents the emergency department complaint of abdominal pain initially started 4 days ago. Patient states that felt pretty good yesterday and went to work. Today around 1115 he started having sudden onset of severe pain left lower quadrant. Patient states that he has had similar pains in the past and has these type of episodes about every 6 months. Patient sees otorhinolaryngologist Dr. Fields whom has given him a cocktail of things that he can take when he is at home such as Bentyl and Zofran and hydrocodone which she did take 4 days ago when this discomfort initially started. Patient does not have history of kidney stones. He does have history of diverticulitis. His pain is all left-sided and currently rates it about a 6 or 7 out of 10. He denies any blood in his stool or black tarry stool. He denies urinary symptoms. [facility] similar [facility]: [facility] Medical History (Updated 11/29/22 @ 13:[address] [place] Lay, ) Abdominal pain Colitis Depression Porphyria Home Medications bupropion HCl 300 mg 24 hr tablet, extended release 300 mg PO DAILY 11/03/21 [History Last Taken Unknown] dicyclomine 20 mg tablet 20 mg PO BID PRN abdominal discomfort #20 tabs 11/03/21 [Rx Last Taken Unknown] famotidine 20 mg tablet (Pepcid) 20 mg PO DAILY #14 tabs 11/03/21 [Rx Last Taken Unknown] ondansetron 4 mg disintegrating tablet 4 mg PO Q6H PRN nausea and vomiting #20 tabs 11/03/21 [Rx Last Taken Unknown] promethazine 25 mg rectal suppository 25 mg NC Q6H PRN nausea and vomiting #12 ea 02/02/22 [Rx Last Taken Unknown] hydrocodone-acetaminophen 5-325mg 5mg-325mg 1 tab PO Q4H PRN PRN Pain 2 days #10 TABLETS 06/25/22 [Rx Last Taken Unknown] ondansetron 4 mg disintegrating tablet 4 mg PO Q8H PRN PRN Nausea #10 tabs 06/25/22 [Rx Last Taken Unknown] oxycodone 5 mg tablet 5 mg PO Q4H PRN Pain 06/25/22 [History Last Taken Unknown] Allergy/AdvReac Type Severity Reaction Status Date / Time No Known Allergies Allergy Verified 11/29/22 11:38 Surgical History (Updated 11/03/21 @ 11:34 by Wanda Batista) History of rhinoplasty History of vasectomy Social History Smoking Status: Former smoker substance use type: marijuana ROS ROS ED Review of Systems ROS Unobtainable: other Constitutional Constitutional ED: Reports lethargy; Denies chills, fever(s), sweats or weight loss Eyes Eyes: Denies blurry vision, change in vision or diplopia ENT ENT ED: Denies rhinorrhea or sore throat Cardiovascular Cardiovascular: Denies chest pain, orthopnea or racing heartbeat Respiratory/Chest Respiratory/Chest: Denies cough, dyspnea, dyspnea on exertion, orthopnea or sputum Gastrointestinal Gastrointestinal: Reports abdominal pain; Denies diarrhea, nausea or vomiting Genitourinary Genitourinary ED: Denies dysuria, hematuria or urinary frequency Musculoskeletal Musculoskeletal: Denies arthralgias, back pain, myalgias or neck pain Integumentary Denies abscess, Abrasions or rash Neurologic Neurologic: Denies headache(s) or weakness Psychiatric Psychiatric: Denies anxiety, depression or suicidal thoughts Endocrine Endocrinology: Denies polydipsia, polyphagia or polyuria Hematologic/Lymphatic Hematologic/Lymphatic: Denies easy bleeding, easy bruising or lymphadenopathy Allergic/Immunologic Allergic/Immunologic ED: Denies mouth swelling, tongue swelling or urticaria EXAM Physical Exam Const Vital Signs: 11/29/22 11:38 Temperature 97.8 F Temperature Source Temporal Pulse Rate 78 Respiratory Rate 16 Blood Pressure 140/78 H Blood Pressure Mean 98 Pulse Ox 99 Oxygen Delivery Method Room Air Positive well nourished and well developed General Appearance ED: well developed and NAD HEENT Reports TM's clear and moist mucous membranes normocephalic and atraumatic; Negative for trauma or tenderness Tympanic Membrane ED: Yes TM's clear Eyes PERRL and EOMs intact bilaterally General Eye ED: Negative for pale conjunctiva or scleral icterus Neck no lymphadenopathy, supple and no JVD General: Negative for tenderness Chest Wall inspection of chest normal and palpation of chest normal Chest: Negative for tenderness Resp normal respiratory effort and clear to auscultation bilaterally Effort and Inspection: Negative for respiratory distress or pain with movement Auscultation: Negative for rhonchi, wheezes or diminished lung sounds Cardio regular rate, regular rhythm, S1 normal heart sound, S2 normal heart sound and no murmurs Peripheral Pulses: pulses 2+ throughout GI normal to inspection, nondistended, normoactive bowel sounds, soft to palpation, non-distended and no masses GI Narrative: Tenderness palpation over the left lower quadrant with some guarding. There is no rebound, rigidity, or peritoneal signs. Back/Spine no CVA tenderness and no thoracic nor lumbar tenderness Extremity normal to inspection General Extremety ED: Negative for edema General Extremity: Negative for edema Neuro oriented x3, CN's II-XII intact bilaterally, no sensory deficits noted and gait normal Sensorium / Orientation: awake, alert, oriented to person, oriented to place and oriented to time Motor Exam: strength 5/5 throughout and strength abnormal Psych mental status grossly normal Skin no rashes or lesions noted and no wounds MDM MDM MDM Narrative Medical decision making narrative: IV line established on arrival. Patient was medicated with Dilaudid, Zofran, and normal saline. In the differential was kidney stone versus diverticulitis versus bowel perforation. Patient had lab work-up that was unremarkable. Patient had normal lactate. CT scan of the abdomen pelvis showed some mild enhancing borderline intramural thickening in the arthur of the rectum and portions of the sigmoid colon without associated diverticulosis. No significant interval change from June 25, 2022. Patient did have good pain relief with treatment in the emergency department. At this point I suspect likely his chronic exacerbation of abdominal pain. He has Bentyl at home as well as hydrocodone and he will continue with that. Patient will follow-up with his otorhinolaryngologist. He is advised to return if worsening pain, fever, bloody stools, or condition should worsen anyway. Lab Data Labs: Laboratory Results - last 24 hr 11/29/22 11/29/22 11/29/22 12:00 12:00 12:00 WBC 8.2 RBC 5.23 Hgb 15.5 Hct 45.0 MCV 86.0 MCH 29.6 MCHC 34.4 RDW Std Deviation 38.6 RDW Coeff of [place] 12.2 Plt Count 254 MPV 9.2 Immature Gran % (Auto) 0.100 Neut % (Auto) 45.3 L Lymph % (Auto) 39.0 [place] % (Auto) 11.2 H Eos % (Auto) 3.4 Baso % (Auto) 1.0 Absolute Neuts (auto) 3.7 Absolute Lymphs (auto) 3.18 Nucleated RBC % 0 Sodium 138 Potassium 3.9 Chloride 105 Carbon Dioxide 30.0 Anion Gap 3 L BUN 20 H Creatinine 1.00 Estim Creat Clear Calc 102.49 Est GFR (MDRD) Af Amer 105 Est GFR (MDRD) Non-Af 87 BUN/Creatinine Ratio 20.0 Glucose 110 H Lactic Acid 0.8 Calcium 9.5 Lipase 173 Radiography Diagnostic Testing: Clinical Impression(s) from Imaging Studies Abdomen/Pelvis CT 11/29/22 11:58 IMPRESSION: 1. Mild enhancing borderline intramural thickening in the arthur of the rectum and portions of the sigmoid colon without associated diverticulosis. If clinically warranted, colonoscopy will be helpful for further evaluation. 2. No significant interval change when compared to 06/25/2022. Electronically Signed: Dougie Araujo MD at 12:40 EST , Discharge Plan Triage Chief Complaint: Abd Pain ED Provider: South Lay Dx/Rx/DC Orders Clinical Impression: Abdominal pain Instructions: ED Abdominal Pain Unkn Cause Male... Prescriptions: No Action bupropion HCl 300 mg tablet extended release 24 hr 300 mg PO DAILY ondansetron 4 mg tablet,disintegrating 4 mg PO Q6H PRN (Reason: nausea and vomiting) Qty: 20 0RF famotidine [Pepcid] 20 mg tablet 20 mg PO DAILY Qty: 14 0RF dicyclomine 20 mg tablet 20 mg PO BID PRN (Reason: abdominal discomfort) Qty: 20 0RF oxycodone 5 mg Tablet 5 mg PO Q4H PRN (Reason: Pain) hydrocodone-acetaminophen [hydrocodone-acetaminophen] 5-325 mg tablet 1 tab PO Q4H PRN PRN (Reason: Pain) 2 Days Qty: 10 0RF ondansetron [ondansetron] 4 mg tablet,disintegrating 4 mg PO Q8H PRN PRN (Reason: Nausea) Qty: 10 0RF promethazine 25 mg suppository 25 mg NC Q6H PRN (Reason: nausea and vomiting) Qty: 12 2RF Primary Care Provider: Kervin Zuniga Referrals: Kervin Zuniga DO [Primary Care Provider] - Friend,DO Alexis [Med Staff - Active Staff] - As Needed Disposition Disposition: Home, Self Care
[2022-11-29] MEDS: 0.9% Normal Saline 1,000 ML 125 ML IV (12:08)
[2022-11-29] MEDS: Ondansetron 4 MG/2 ML Vial IV ×2 (12:08→13:34)
[2022-11-29] MEDS: HYDROmorphone 1 MG/ML Syringe IV ×2 (12:08→13:34)
[2022-11-29 12:17] LABS: Absolute Lymphocyte Count 3.18 X10^3/uL (0.83-4.51); Absolute Neutrophil Count 3.7 X10^3/uL (2.0-7.7); Basophil# 0.08 X10^3/uL; Eosinophil# 0.28 X10^3/uL; Eosinophils% 3.4 % (0-5); Hemoglobin 15.5 g/dL (13.0-16.5); Lymphocyte # 3.18 X10^3/ul (0.83-4.51); Mean Corp Hgb Conc 34.4 g/dL (32-36); Mean Corpuscular Hgb 29.6 pg (27.0-32.0); Mean Platelet Vol. 9.2 fl (6.2-12.0); Monocyte# 0.91 X10^3/uL; Monocyte% 11.2 % (0-10); NRBC Flagged by Analyzer 0 % (0-5); Neutrophil % 45.3 % (47-70); Platelet Count 254 K/mm3 (150-450); RBC Distribution Width CV 12.2 % (11.6-14.6); RBC Distribution Width SD 38.6 fl (35.1-43.9); Red Blood Count 5.23 M/mm3 (4.6-6.2); White Blood Count 8.2 K/mm3 (4.4-11.0)
[2022-11-29 12:27] LABS: Anion Gap 3 (5-15); BUN 20 mg/dL (7-18); Calcium,Total 9.5 mg/dL (8.5-10.1); Chloride 105 mmol/L (98-107); EST Glomerular Filtration Rate 87 mL/min (>60); Est Glom Filt Rate - Afr Amer 105 mL/min (>60); Estimated Creatinine Clearance 102.49 ml/min; Glucose 110 mg/dL (74-106); Lipase 173 U/L (73-393); Potassium 3.9 mmol/L (3.5-5.1); Sodium Level 138 mmol/L (136-145)
[2022-11-29 12:31] LABS: Lactic Acid 0.8 mmol/L (0.4-1.9)
--- NOTE | 2022-11-29 13:50 | ED.RN ---
significant other, Kandace called in for update.
[2022-11-29 14:30] LABS: Bacteria 0 SEEN /hpf (None Seen); Mucous, Urine 0 SEEN /hpf (<or=2+); Red Blood Cells-Urine 0 SEEN /hpf (0-5); Squamous Epithelial Cells - UA 0 SEEN /hpf (0-5); White Blood Cells 0 SEEN /hpf (0-5)
[2022-11-29 14:38] LABS: Color, Urine Yellow (Yellow); Glucose, Dipstick Normal (Normal); Ketone-Dipstick 50 mg/dl (Negative); Leukocyte Esterase-Dipstick Negative /ul (Negative); Nitrite-Dipstick Negative (Negative); Occult Blood-Urine Negative /ul (Negative); Protein-Dipstick Negative (Negative); Specific Gravity, Urine 1.015 (1.002-1.030); Urine Bilirubin Dipstick Negative (Negative); Urine Clarity Clear (Clear); Urine Urobilinogen Normal (Normal)
== END 2022-11-29 14:25 | disposition home or self-care (01) ==
PROVIDERS: Emergency Provider Emergency Medicine; PCP Family Medicine; Visit Provider Emergency Medicine
DX: R10.32 Left lower quadrant pain (principal); F12.90 Cannabis use, unspecified, uncomplicated; Z87.891 Personal history of nicotine dependence
CPT/HCPCS: 74177; 80048; 81001; 83605; 83690; 85025; 96374; 96375; 96376; 99283; J7030; Q9967; A4216; J2405

== ENCOUNTER → 2022-11-29 | Outpatient (CLI) | payer BC, SELFPAY ==
[2022-11-29 15:46] LABS: Absolute Lymphocyte Count 1.05 X10^3/uL (0.83-4.51); Absolute Neutrophil Count 8.3 X10^3/uL (2.0-7.7); Basophil# 0.05 X10^3/uL; Basophil% 0.5 % (0-1); Eosinophil# 0.05 X10^3/uL; Eosinophils% 0.5 % (0-5); Hemoglobin 15.1 g/dL (13.0-16.5); Lymphocyte # 1.05 X10^3/ul (0.83-4.51); Lymphocyte % 10.4 % (19-41); Mean Corp Hgb Conc 35.1 g/dL (32-36); Mean Corpuscular Hgb 30.1 pg (27.0-32.0); Mean Corpuscular Volume 85.8 fL (80-94); Mean Platelet Vol. 9.6 fl (6.2-12.0); Monocyte% 5.9 % (0-10); NRBC Flagged by Analyzer 0 % (0-5); Neutrophil # 8.32 X10^3/uL (2.7-7.7); Neutrophil % 82.4 % (47-70); Platelet Count 229 K/mm3 (150-450); RBC Distribution Width CV 12.3 % (11.6-14.6); RBC Distribution Width SD 38.5 fl (35.1-43.9); Red Blood Count 5.01 M/mm3 (4.6-6.2); White Blood Count 10.1 K/mm3 (4.4-11.0)
[2022-11-29 16:06] LABS: Erythrocyte Sedimentation Rate 4 mm/hr (0-20)
[2022-11-29 16:23] LABS: ALB/GLOB Ratio 1.2 RATIO (0.9-2.4); AST(SGOT) 21 U/L (15-37); Alanine Aminotransfer ALT/SGPT 37 U/L (16-61); Albumin, Serum 3.9 g/dL (3.2-5.0); Alkaline Phosphatase 55 U/L (45-117); Anion Gap 3 (5-15); BUN 18 mg/dL (7-18); BUN/Creat Ratio 19.8 RATIO (10-20); CRP < 2.90 mg/L (0.0-3.0); Calcium,Total 8.4 mg/dL (8.5-10.1); Chloride 105 mmol/L (98-107); Creatinine, Serum 0.91 mg/dL (0.70-1.30); EST Glomerular Filtration Rate 97 mL/min (>60); Est Glom Filt Rate - Afr Amer 118 mL/min (>60); Globulin 3.3 g/dL (2.2-4.2); Glucose 109 mg/dL (74-106); LDH 164 U/L (87-241); Potassium 3.3 mmol/L (3.5-5.1); Protein, Total 7.2 g/dL (6.4-8.2); Sodium Level 139 mmol/L (136-145)
[2022-12-01 14:09] LABS: Anti-Centromere B Ab <0.2 AI (0.0-0.9); Anti-Chromatin <0.2 AI (0.0-0.9); Anti-Jo <0.2 AI (0.0-0.9); Anti-Scleroderma-70 AB <0.2 AI (0.0-0.9); RNP Ab <0.2 AI (0.0-0.9); SJOGREN'S Anti-SS-A test < 0.2 AI (0.0-0.9); SJOGREN'S Anti-SS-B test < 0.2 AI (0.0-0.9); Smith Ab <0.2 AI (0.0-0.9)
[2022-12-01 15:08] LABS: Endomysial Antibody IgA Negative (Negative)
[2022-12-01 16:27] LABS: Anti-dsDNA Ab 1 IU/mL (0-9)
[2022-12-01 17:16] LABS: Immunoglobulin A 199 mg/dL (90-386); t-Transglutaminase IgA <2 U/mL (0-3)
[2022-12-03 06:37] LABS: Alpha-1-Globulins 0.2 g/dL (0.0-0.4); Alpha-2-Globulins 0.6 g/dL (0.4-1.0); Cytoplasmic Ab (C-ANCA) <1:20 titer (Neg:<1:20); Gamma Globulin 1.1 g/dL (0.4-1.8); Immunoglobulin A 203 mg/dL (90-386); Immunoglobulin E 40 IU/mL (6-495); Immunoglobulin G 1088 mg/dL (603-1613); Immunoglobulin M 56 mg/dL (20-172); PROEL- TOTAL PROTEIN 6.9 g/dL (6.0-8.5)
[2022-12-04 22:36] LABS: Perinuclear Ab (P-ANCA) <1:20 titer (Neg:<1:20)
== END | disposition home or self-care (01) ==
PROVIDERS: PCP Family Medicine; Visit Provider Internal Medicine Gastroenterology
DX: K52.9 Noninfective gastroenteritis and colitis, unspecified (principal)
CPT/HCPCS: 36415; 80053; 82784; 82785; 83516; 83615; 84165; 85025; 85652; 86140; 86225; 86235; 86255; 86256; 86334

== ENCOUNTER → 2022-12-01 | Outpatient (CLI) | payer BC, SELFPAY ==
[2022-12-05 11:39] LABS: Calprotectin, Stool 100 ug/g (0-120)
== END | disposition home or self-care (01) ==
LOC: LABSPEC 06:53
PROVIDERS: PCP Family Medicine; Referring Provider Internal Medicine Gastroenterology; Visit Provider Internal Medicine Gastroenterology
DX: K52.9 Noninfective gastroenteritis and colitis, unspecified (principal)
CPT/HCPCS: 83630; 83993

== ENCOUNTER → 2023-01-04 | Outpatient (CLI) | payer BC, SELFPAY ==
--- NOTE | 2023-01-04 15:50 | CT_ITS ---
STUDY: CTA ABDOMEN AND PELVIS WITH CONTRAST REASON FOR EXAM: Male, 42 years old. Intermittent diffuse abdominal pain for 10 years. RADIATION DOSAGE (If Supplied By Facility): CTDIvol = ( 25.22 ) mGy, DLP = ( 423.43 ) mGycm TECHNIQUE: Transaxial images were obtained from the dome of the diaphragm to the symphysis pubis without oral contrast. IV 100mL Isovue-370 was administered. Sagittal and coronal images were reconstructed. Individualized dose optimization techniques were used for this CT. COMPARISON: Comparison is made with prior study dated 11/29/2019 FINDINGS: Minimal degree of dependent bibasilar atelectasis. The visualized portions of the heart are within normal limits. Normal liver. Normal gallbladder and extrahepatic biliary system. Normal spleen. Normal pancreas. Normal bilateral adrenal glands. Normal right kidney. Normal left kidney. There is a small hiatal hernia. Normal small intestine. Normal colon. The appendix is visualized and appears normal. Normal abdominal aorta. Normal inferior vena cava. Normal retroperitoneum. Normal urinary bladder. Normal abdominal wall. Normal osseous structures. CT/CT ANGIO ABD&PEL W/O&W/DYE IMPRESSION: Normal enhanced CT of the abdomen and pelvis. Electronically Signed: Shaq Poole MD at 12:11 EST ,
== END | disposition home or self-care (01) ==
LOC: CT 15:48
PROVIDERS: PCP Family Medicine; Referring Provider Internal Medicine Gastroenterology; Visit Provider Internal Medicine Gastroenterology
DX: R10.9 Unspecified abdominal pain (principal)
CPT/HCPCS: 74174; Q9967

== ENCOUNTER 2023-02-01 06:54 | Day surgery (SDC) | payer BC, SELFPAY ==
[2023-02-01] VITALS (7 sets, daily range): BP systolic 105–111; BP diastolic 67–81; PULSE 47–60; RESP 16–18; TEMP 36.2–37.2; O2SAT 97–100; BMI 21.6
--- NOTE | 2023-02-01 | GASB_PTH ---
PATIENT: HELLEN HOLDEN I LOC: EN U#:[id number] AGE/SX: 42/M ROOM: RE02/01/[address]: Dr. Alexis Fields DO : 1980 BED: DIS: 02/01/2023 SPEC #: [id number] RECD: 02/01/23 11:38 STATUS: SHANNAN KATHERINE #: [id number] MARK: 02/01/23 00:[address]: Alexis Fields DEPT: SURGICAL PATHOLOGY RECD BY: Jesu Hadley ENTERED: 02/01/23 11:39 SP TYPE: Gastric Bx OTHR DR: Dr. Kervin Zuniga DO Tissues: A - Duodenum, NOS B - Gastric mucous membrane C - Esophageal mucous membrane D - Ileum, NOS E - COLON BIOPSY Procedures: Special Stain Group II Surgery Specimen Level IV Alcian Blue/PAS (control) HEADER OPERATION: Colonoscopy, EGD ([facility]), biopsy PRE-OP DIAGNOSIS: Abdominal pain TISSUE SUBMITTED: A ? Duodenum biopsy, B ? Gastric body biopsy, C ? Distal esophagus biopsy, D ? Terminal ileum biopsy, E ? Random colon biopsy MICROSCOPIC DIAGNOSIS A. Duodenum, biopsy: Fragments of duodenal mucosa, no pathologic diagnosis. B. Gastric body, biopsy: Mild gastritis. See microscopic description and comment. C. Distal esophagus, biopsy: Fragments of gastric mucosa with chronic inflammation. Intestinal metaplasia (goblet cell metaplasia) is not identified. See comment. D. Terminal ileum, biopsy: Fragments of small intestinal mucosa, no pathologic diagnosis. E. Colon, random biopsy: Fragments of colonic mucosa, no pathologic diagnosis. SJ:leonie 02/02/2023 COMMENT B. The results of immunohistochemistry for Helicobacter pylori will be reported separately ([id number]). C. Alcian blue/PAS stain with matched control is used in the evaluation of the specimen. MICROSCOPIC DESCRIPTION Slides are reviewed. B. The specimen shows fragments of gastric mucosa with chronic inflammatory cell infiltrates in the lamina propria consisting of lymphocytes and plasma cells, consistent with mild chronic gastritis. GROSS DESCRIPTION A - Received in fixative is one container labeled with the patient's name and designated duodenum biopsy. The specimen consists of multiple irregular fragments of light alba soft tissue that in aggregate measure 1.0 x 0.3 x 0.1 cm. The specimen is totally submitted in one cassette. B - Received in fixative is one container labeled with the patient's name and designated gastric body biopsy. The specimen consists of multiple irregular fragments of light alba soft tissue that in aggregate measure 0.7 x 0.4 x 0.1 cm. The specimen is totally submitted in one cassette. C - Received in fixative is one container labeled with the patient's name and designated distal esophagus biopsy. The specimen consists of multiple irregular fragments of light alba soft tissue that in aggregate measure 1.0 x 0.3 x 0.1 cm. The specimen is totally submitted in one cassette. D - Received in fixative is one container labeled with the patient's name and designated terminal ileum biopsy. The specimen consists of multiple irregular fragments of light alba soft tissue that in aggregate measure 1.0 x 0.4 x 0.1 cm. The specimen is totally submitted in one cassette. E - Received in fixative is one container labeled with the patient's name and designated random colon biopsy. The specimen consists of multiple irregular fragments of light alba soft tissue that in aggregate measure 0.6 x 0.5 x 0.1 cm. The specimen is totally submitted in one cassette. / SJ:rg 02/01/2023 TC:3 CPT: 25488 x5, 62881
--- NOTE | 2023-02-01 07:02 | HP.PCM_ITS ---
History and Physical Date of Admission: 02/01/23 41 M who presents to the office today for Follow up visit. Christiano established with this clinic 12.02.21 following presentation to [facility] ED for abdominal pain, nausea, vomiting that had been present for eight days. Biochemical workup and imaging performed with finding of adrenal adenoma which will be followed by his PCP. He was given pain medication and Zofran with improvement and discharged home. Daily cannabis use noted. PCP started him on prednisone for previously diagnosed colitis. Abdominal pain occurs 1-2 times a year with vomiting and a large BM with preceding symptoms of abdominal swelling and tightness that may or may not progress. Family history pancreatic cancer Dr. Carrillo performed EGD and colonoscopy 2017 with reported normal results. CT abd/pel 11.03.21 found adrenal adenoma measuring 1.6cm. Small hiatal hernia. Moderate amount of fecal material in colon. Small umbilical hernia containing fat. MRCP 01.03.22 reported as unremarkable. 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 Biochemical workup WNL: total protein, globulin, GAME, IgG4, SCOTT, celiac, TORREY comp, ANCA, CA19-9, Cortisol, LDH, c-peptide. Elevated: CRP 3.07 Urine: porphobilinogen WNL. ELEVATED coproporphyrin I and III. Stool studies: fats WNL Plan last visit 01.13.22: Pancreatitis ? biochemical workup and stool studies. Possible EUS in future. The week prior to 04.07.22 he was having issues with LLQ abdominal pain/pressure, he took some pain medication and went to bed and when he woke it was gone. Did not have a BM with this episode. This has been the only episode since . Does smoke marijuana, about two grams a day; is willing to stop if porphyria test ROS Const Constitutional: No fatigue, malaise, night sweats, weight change, sleep problems, abnormal sleep pattern or change in appetite ENT ENT: No difficulty swallowing, hoarseness or sore throat Cardio Cardiology: No chest pain at rest Gastro GI: No belching, bloating, change in bowel habits, change in stool character, coffee ground emesis, constipation, cramping, diarrhea, heartburn, difficulty swallowing, feeling full early, excessive flatus, incontinent of stools, Vomiting blood/hematemesis, Blood in stool, loose stools, Black,tarry stools, nausea/dyspepsia, pain with swallowing, vomiting or other Musc Musculoskeletal: No joint pain Skin Skin: No yellowing of the eye or itchy eyes Neuro Neurology: No behavioral changes Psych Psychiatric: No abnormal sleep pattern, No anxiety, No behavioral changes, No change in appetite and No depression Endo Endocrine: No fatigue or weight change Aller/Imm Allergy/Immunologic: No itchy eyes Sam/Lymp Hematologic/Lymphatic: No easy bleeding or easy bruising Exam Const General: cooperative and comfortable Nutritional Appearance: average body habitus and well nourished [facility] Head: normal to inspection Ears: hearing grossly normal bilaterally Nose: external nose normal Face and sinus: normal facial exam Mouth: oral mucosae normal Throat: posterior oropharynx normal Eyes General: appearance normal, both eyes and all related structures Neck Neck: normal visual inspection Chest Chest palpation & inspection: normal inspection of the chest and normal palpation of entire chest wall Resp Effort & Inspection: normal respiratory effort Auscultation: Bilateral: Clear to Auscultation Cardio Palpation: normal PMI Rate: regular rate Rhythm: regular rhythm GI Inspection: normal to inspection Auscultation: normal bowel sounds Percussion: normal to percussion Palpation: no hepatosplenomegaly Skin General: no rashes or lesions noted Neuro General: patient alert Extrem General: normal to inspection Psych Affect: normal affect Quality Reporting Tobacco Screening ([facility] 138) Smoking Status: Former smoker Assessment and Plan Assessment and Plan (1) Abdominal pain, acute: ?Status:?Acute ?Plan - Dr. Espinoza Friend, DO: His blood tests do have high protoporphyrin's and his urine tests have high prot oporphyrin's.? There is a possibility that he has the genetics for acute intermittent porphyria or another porphyria that would explain his symptoms of abdominal pain.? I know it can be exacerbated by smoking.? He said he be willing to stop marijuana in order to see if it had an effect on the blood test.? I told him I would prefer that he see a specialist due to the fact that his blood is high for protoporphyrin's and his urine is-protoporphyrin's. We will also perform an upper and lower endoscopy to evaluate his upper and lower GI tract. He was explained alternatives, risk, benefits including outstanding bleeding, infection, sepsis, perforation, need for emergent surgery and . He will have an ASA of 1.
[2023-02-01] MEDS: Lactated Ringers 1,000 ML 15 ML IV (07:34)
--- NOTE | 2023-02-01 08:00 | IMM_PTH ---
PATIENT: HELLEN HOLDEN I LOC: EN U#:[id number] AGE/SX: 42/M ROOM: RE02/01/[address]: Dr. Alexis Fields DO : 1980 BED: DIS: 02/01/2023 SPEC #: [id number] RECD: 02/01/23 12:38 STATUS: SHANNAN KATHERINE #: [id number] MARK: 02/01/23 08:[address]: Alexis Fields DEPT: IMMUNOHISTOCHEMISTRY RECD BY: Rizwana Benedict ENTERED: 02/01/23 12:38 SP TYPE: IMMUNO OTHR DR: Dr. Kervin Zuniga DO Tissues: B - Stomach, NOS Procedures: H Pylori (initial) PHYSICIAN & INSTITUTION [place] [id number] SPECIMEN INFORMATION: Tissue Source: B ? Gastric body biopsy Clinical Info: Abdominal pain, ulcer Specimen Number: [id number] CPT code: 62862 METHODOLOGY: Deparaffinized sections of prefer/formalin-fixed tissue or PAP/DQ stained slides are incubated with monoclonal/polyclonal antibodies/oligonucleotide probes. Localization is made via biotin free immunoperoxidase method. Appropriate controls are performed and reacted as expected. Results on target cell population are indicated in the following table: RESULTS: ANTIBODY / CLONE RESULT Block B H Pylori (polyclonal) negative These tests were developed and their performance characteristics determined by [facility]. They may not have been cleared or approved by the U.S. Food and Drug Administration. The FDA has determined that such clearance or approval is not necessary. The above immunohistochemical/dualISH markers are ordered and reviewed by the Pathologist. INTERPRETATION: B. Gastric body, biopsy: Negative for Helicobacter pylori organisms. SJ:leonie 02/02/2023
--- NOTE | 2023-02-01 08:47 | OP.EGD_ITS ---
Patient Name: Christiano Lee Procedure Date: 02/01/2023 8:09 AM Date of : 1980 Age: 42 Procedure: Upper GI endoscopy Indications: Epigastric abdominal pain, Functional Dyspepsia Providers: Alexis Fields DO Medicines: Monitored Anesthesia Care Complications: No immediate complications. Procedure: Pre-Anesthesia Assessment: - Prior to the procedure, a History and Physical was performed, and patient medications and allergies were reviewed. The risks and benefits of the procedure and the sedation options and risks were discussed with the patient. All questions were answered and informed consent was obtained. Patient identification and proposed procedure were verified by the physician in the pre-procedure area. Mental Status Examination: normal. Airway Examination: normal oropharyngeal airway and neck mobility. Respiratory Examination: clear to auscultation. CV Examination: normal. Prophylactic Antibiotics: The patient does not require prophylactic antibiotics. Prior Anticoagulants: The patient has taken no previous anticoagulant or antiplatelet agents. ASA Grade Assessment: II - A patient with mild systemic disease. After reviewing the risks and benefits, the patient was deemed in satisfactory condition to undergo the procedure. The anesthesia plan was to use monitored anesthesia care (MAC). Immediately prior to administration of medications, the patient was re-assessed for adequacy to receive sedatives. The heart rate, respiratory rate, oxygen saturations, blood pressure, adequacy of pulmonary ventilation, and response to care were monitored throughout the procedure. The physical status of the patient was re-assessed after the procedure. After obtaining informed consent, the endoscope was passed under direct vision. Throughout the procedure, the patient's blood pressure, pulse, and oxygen saturations were monitored continuously. The colonoscope was introduced through the mouth, and advanced to the second part of duodenum. The upper GI endoscopy was accomplished without difficulty. The patient tolerated the procedure well. Scope In: 8:21:37 AM Scope Out: 8:25:50 AM Total Procedure Duration Time 0 hours 4 minutes 13 seconds Findings: The Z-line was irregular and was found 40 cm from the incisors. Biopsies were taken with a cold forceps for histology. Verification of patient identification for the specimen was done. Estimated blood loss was minimal. Diffuse mild inflammation characterized by congestion (edema) was found in the gastric body. Biopsies were taken with a cold forceps for histology. Verification of patient identification for the specimen was done. Estimated blood loss was minimal. Patchy mildly erythematous mucosa without active bleeding and with no stigmata of bleeding was found in the second portion of the duodenum. Biopsies were taken with a cold forceps for histology. Verification of patient identification for the specimen was done. Estimated blood loss was minimal. Impression: - Z-line irregular, 40 cm from the incisors. Biopsied. - Chronic gastritis. Biopsied. - Erythematous duodenopathy. Biopsied. Recommendation: - Discharge patient to home. - Resume previous diet. - Continue present medications. - Await pathology results. Procedure Code(s): --- Professional --- 18428, Esophagogastroduodenoscopy, flexible, transoral; with biopsy, single or multiple CPT copyright 2017 [employer]. All rights reserved. The codes documented in this report are preliminary and upon peoplesoft consultant review may be revised to meet current compliance requirements. Alexis Fields DO 02/01/2023 8:46:53 AM This report has been signed electronically. Number of Addenda: 0 Note Initiated On: 02/01/2023 8:09 AM
--- NOTE | 2023-02-01 08:48 | OP.CCLET_ITS ---
02/01/2023 Kervin Zuniga [address] [place] [address] Re : Upper GI endoscopy procedure for Christiano [facility] Dear Dr. Zuniga This procedure was performed on January. My impressions and recommendations are as follows: Impressions : - Z-line irregular, 40 cm from the incisors. Biopsied. - Chronic gastritis. Biopsied. - Erythematous duodenopathy. Biopsied. Recommendations : - Discharge patient to home. - Resume previous diet. - Continue present medications. - Await pathology results. My findings are described in the full procedure note, which is enclosed. If I can be of further assistance, please feel free to contact me at . Sincerely, Alexis Fields, 02/01/2023 8:46:53 AM This report has been signed electronically.
--- NOTE | 2023-02-01 08:50 | OP.COLON_ITS ---
Patient Name: Christiano Lee Procedure Date: 02/01/2023 8:26 AM Date of : 1980 Age: 42 Procedure: Colonoscopy Indications: Epigastric abdominal pain, Clinically significant diarrhea of unexplained origin Providers: Alexis Fields DO Medicines: Monitored Anesthesia Care Patient Profile: This is a 42 year old male. Refer to note in patient chart for documentation of history and physical. Last Colonoscopy: date unknown. Unable to locate last colonoscopy report. Complications: No immediate complications. Procedure: Pre-Anesthesia Assessment: - Prior to the procedure, a History and Physical was performed, and patient medications and allergies were reviewed. The risks and benefits of the procedure and the sedation options and risks were discussed with the patient. All questions were answered and informed consent was obtained. Patient identification and proposed procedure were verified by the physician in the pre-procedure area. Mental Status Examination: normal. Airway Examination: normal oropharyngeal airway and neck mobility. Respiratory Examination: clear to auscultation. CV Examination: normal. Prophylactic Antibiotics: The patient does not require prophylactic antibiotics. Prior Anticoagulants: The patient has taken no previous anticoagulant or antiplatelet agents. ASA Grade Assessment: II - A patient with mild systemic disease. After reviewing the risks and benefits, the patient was deemed in satisfactory condition to undergo the procedure. The anesthesia plan was to use monitored anesthesia care (MAC). Immediately prior to administration of medications, the patient was re-assessed for adequacy to receive sedatives. The heart rate, respiratory rate, oxygen saturations, blood pressure, adequacy of pulmonary ventilation, and response to care were monitored throughout the procedure. The physical status of the patient was re-assessed after the procedure. After I obtained informed consent, the scope was passed under direct vision. Throughout the procedure, the patient's blood pressure, pulse, and oxygen saturations were monitored continuously. The colonoscope was introduced through the anus and advanced to the terminal ileum. The colonoscopy was performed without difficulty. The patient tolerated the procedure well. The quality of the bowel preparation was adequate. Scope In: 8:27:51 AM Scope Withdrawal Time 0 hours 7 minutes 36 seconds Scope Out: 8:38:17 AM Total Procedure Duration Time 0 hours 10 minutes 26 seconds Findings: The perianal and digital rectal examinations were normal. An area of mildly congested mucosa was found in the sigmoid colon, in the transverse colon and in the ascending colon. Biopsies were taken with a cold forceps for histology. Verification of patient identification for the specimen was done. Estimated blood loss was minimal. The terminal ileum appeared normal. Biopsies were taken with a cold forceps for histology. Verification of patient identification for the specimen was done. Estimated blood loss was minimal. Non-bleeding internal hemorrhoids were found during retroflexion. The hemorrhoids were Grade I (internal hemorrhoids that do not prolapse). Impression: - Congested mucosa in the sigmoid colon, in the transverse colon and in the ascending colon. Biopsied. - The examined portion of the ileum was normal. Biopsied. - Non-bleeding internal hemorrhoids. Recommendation: - Repeat colonoscopy in 5 years for surveillance. - Continue present medications. Procedure Code(s): --- Professional --- 77610, Colonoscopy, flexible; with biopsy, single or multiple CPT copyright 2017 [employer]. All rights reserved. The codes documented in this report are preliminary and upon tin pourer review may be revised to meet current compliance requirements. Alexis Fields DO 02/01/2023 8:50:34 AM This report has been signed electronically. Number of Addenda: 0 Note Initiated On: 02/01/2023 8:26 AM
--- NOTE | 2023-02-01 08:51 | OP.CCLET_ITS ---
02/01/2023 Kervin Zuniga [address] [facility] [place] [address] Re : Colonoscopy procedure for Christiano [facility] Dear Dr. Zuniga This procedure was performed on January. My impressions and recommendations are as follows: Impressions : - Congested mucosa in the sigmoid colon, in the transverse colon and in the ascending colon. Biopsied. - The examined portion of the ileum was normal. Biopsied. - Non-bleeding internal hemorrhoids. Recommendations : - Repeat colonoscopy in 5 years for surveillance. - Continue present medications. My findings are described in the full procedure note, which is enclosed. If I can be of further assistance, please feel free to contact me at . Sincerely, Alexis Fields, 02/01/2023 8:50:34 AM This report has been signed electronically.
== END 2023-02-01 09:21 | disposition home or self-care (01) ==
LOC: EN 06:55 → AC 06:57
PROVIDERS: PCP Family Medicine; Referring Provider Family Medicine; Visit Provider Internal Medicine Gastroenterology
PROC: 0DJD8ZZ Inspection of Lower Intestinal Tract, Via Natural or Artificial Opening Endoscopic (ICD-10-PCS; CPT 45378; principal; 2023-02-01 07:55)
DX: K21.00 Gastro-esophageal reflux disease with esophagitis, without bleeding (principal); K63.89 Other specified diseases of intestine; K31.89 Other diseases of stomach and duodenum; K29.50 Unspecified chronic gastritis without bleeding; K64.0 First degree hemorrhoids; K30 Functional dyspepsia; F12.90 Cannabis use, unspecified, uncomplicated; F32.A Depression, unspecified; Z87.891 Personal history of nicotine dependence; Z79.899 Other long term (current) drug therapy; Z80.0 Family history of malignant neoplasm of digestive organs
CPT/HCPCS: 45380; 43239; 88305; 88313; 88342; J7120; J2405

== ENCOUNTER → 2023-08-07 | Outpatient (CLI) | payer BC, SELFPAY ==
[2023-08-07 17:42] LABS: Absolute Lymphocyte Count 1.65 X10^3/uL (0.83-4.51); Absolute Neutrophil Count 2.2 X10^3/uL (2.0-7.7); Basophil# 0.06 X10^3/uL; Basophil% 1.3 % (0-1); Eosinophils% 4.2 % (0-5); Hematocrit 40.1 % (40-54); Hemoglobin 13.9 g/dL (13.0-16.5); Lymphocyte # 1.65 X10^3/ul (0.83-4.51); Lymphocyte % 34.9 % (19-41); Mean Corp Hgb Conc 34.7 g/dL (32-36); Mean Corpuscular Hgb 30.2 pg (27.0-32.0); Mean Platelet Vol. 9.9 fl (6.2-12.0); Monocyte# 0.59 X10^3/uL; Monocyte% 12.5 % (0-10); NRBC Flagged by Analyzer 0 % (0-5); Neutrophil # 2.23 X10^3/uL (2.7-7.7); Neutrophil % 47.1 % (47-70); Platelet Count 206 K/mm3 (150-450); RBC Distribution Width CV 12.1 % (11.6-14.6); RBC Distribution Width SD 38.8 fl (35.1-43.9); Red Blood Count 4.61 M/mm3 (4.6-6.2); White Blood Count 4.7 K/mm3 (4.4-11.0)
[2023-08-07 18:28] LABS: ALB/GLOB Ratio 1.2 RATIO (0.9-2.4); AST(SGOT) 17 U/L (15-37); Alanine Aminotransfer ALT/SGPT 34 U/L (16-61); Albumin, Serum 3.8 g/dL (3.2-5.0); Alkaline Phosphatase 69 U/L (45-117); Anion Gap 3 (5-15); BUN 13 mg/dL (7-18); BUN/Creat Ratio 12.7 RATIO (10-20); Calcium,Total 8.5 mg/dL (8.5-10.1); Chloride 105 mmol/L (98-107); Creatinine, Serum 1.02 mg/dL (0.70-1.30); EST Glomerular Filtration Rate 85 mL/min (>60); Est Glom Filt Rate - Afr Amer 103 mL/min (>60); Globulin 3.3 g/dL (2.2-4.2); Glucose 90 mg/dL (74-106); Protein, Total 7.1 g/dL (6.4-8.2); Sodium Level 138 mmol/L (136-145); Thyroid Stim Hormone (TSH) 0.88 uIU/mL (0.358-3.74)
[2023-08-07 19:06] LABS: Hemoglobin A1c 5.5 % (3.8-5.6)
== END | disposition home or self-care (01) ==
PROVIDERS: PCP Family Medicine; Referring Provider Family Medicine; Visit Provider Family Medicine
DX: Z00.00 Encounter for general adult medical examination without abnormal findings (principal); R53.83 Other fatigue; R73.9 Hyperglycemia, unspecified
CPT/HCPCS: 36415; 80050; 80053; 83036; 84403; 84443; 85025

== ENCOUNTER → 2024-08-22 | Outpatient (CLI) | payer BC, SELFPAY ==
[2024-08-22 16:58] LABS: Absolute Lymphocyte Count 2.02 X10^3/uL (0.83-4.51); Basophil# 0.06 X10^3/uL; Eosinophil# 0.19 X10^3/uL; Eosinophils% 3.2 % (0-5); Hematocrit 39.9 % (40-54); Hemoglobin 13.7 g/dL (13.0-16.5); Lymphocyte # 2.02 X10^3/ul (0.83-4.51); Lymphocyte % 34.4 % (19-41); Mean Corp Hgb Conc 34.3 g/dL (32-36); Mean Corpuscular Hgb 29.3 pg (27.0-32.0); Mean Corpuscular Volume 85.3 fL (80-94); Mean Platelet Vol. 9.7 fl (6.2-12.0); Monocyte# 0.62 X10^3/uL; Monocyte% 10.6 % (0-10); NRBC Flagged by Analyzer 0 % (0-5); Neutrophil # 2.97 X10^3/uL (2.7-7.7); Neutrophil % 50.6 % (47-70); Platelet Count 222 K/mm3 (150-450); RBC Distribution Width CV 12.1 % (11.6-14.6); RBC Distribution Width SD 37.3 fl (35.1-43.9); Red Blood Count 4.68 M/mm3 (4.6-6.2); White Blood Count 5.9 K/mm3 (4.4-11.0)
[2024-08-22 17:23] LABS: ALB/GLOB Ratio 1.2 RATIO (0.9-2.4); AST(SGOT) 14 U/L (15-37); Alanine Aminotransfer ALT/SGPT 27 U/L (16-61); Albumin, Serum 3.9 g/dL (3.2-5.0); Alkaline Phosphatase 68 U/L (45-117); Anion Gap 4 (5-15); BUN 20 mg/dL (7-18); BUN/Creat Ratio 20.9 RATIO (10-20); Chloride 109 mmol/L (98-107); Creatinine, Serum 0.96 mg/dL (0.70-1.30); EST Glomerular Filtration Rate 91 mL/min (>60); Est Glom Filt Rate - Afr Amer 110 mL/min (>60); Globulin 3.2 g/dL (2.2-4.2); Glucose 85 mg/dL (74-106); Potassium 3.7 mmol/L (3.5-5.1); Protein, Total 7.1 g/dL (6.4-8.2); Sodium Level 140 mmol/L (136-145)
[2024-08-22 17:25] LABS: Hemoglobin A1c 5.6 % (3.8-5.6)
== END | disposition home or self-care (01) ==
LOC: BFHLAB 15:09
PROVIDERS: PCP Family Medicine; Visit Provider Family Medicine
DX: Z00.00 Encounter for general adult medical examination without abnormal findings (principal)
CPT/HCPCS: 36415; 80053; 83036; 85025